=== PATIENT | male | born 1930 | race Caucasian/White ===

== ENCOUNTER 2016-03-23 12:02 | Inpatient (IN) | payer MEDICARE, OTHER ==
[~2016-03-23] VITALS: Ht 188 cm; Wt 81.6 kg
[2016-03-23 14:10] LABS: BASO % 0.3 % (0.0-1.0); EOS % 0.5 % (0.0-3.0); LARGE UNSTAINED CELL # 0.2 K/mm3 (0.0-0.4); LARGE UNSTAINED CELL % 3.7 % (0.0-4.0); LYMPH # 0.6 K/mm3 (1.5-4.5); LYMPH % 11.8 % (24.0-44.0); MEAN CORPUSCULAR HEMOGLOBIN 30.4 pg (27.0-33.0); MEAN CORPUSCULAR HGB CONC 32.1 g/dl (32.0-36.5); MEAN CORPUSCULAR VOLUME 94.5 fl (80.0-96.0); MONO # 0.3 K/mm3 (0.0-0.8); MONO % 6.4 % (0.0-5.0); NEUTROPHILS % 77.4 % (36.0-66.0); PLATELET COUNT, AUTOMATED 236 k/mm3 (150-450); RED CELL DISTRIBUTION WIDTH 14.2 % (11.5-14.5); WHITE BLOOD COUNT 5.1 K/mm3 (4.0-10.0)
[2016-03-23] MEDS ORDERED: IPRATROPIUM 0.5MG/ALBUTEROL 2.5MG INH SOL UD 3ML (DUONEB)(J7620) As Ordered ONE (14:58)
[2016-03-23 15:14] LABS: ANION GAP 9 MEQ/L (8-16); BLOOD UREA NITROGEN 23 MG/DL (7-18); CALCIUM LEVEL 8.4 MG/DL (8.8-10.2); CARBON DIOXIDE LEVEL 25 MEQ/L (21-32); CHLORIDE LEVEL 105 MEQ/L (98-107); CREATININE FOR GFR 1.04 MG/DL (0.70-1.30); GLOMERULAR FILTRATION RATE > 60.0 (>35); GLUCOSE, FASTING 91 MG/DL (83-110); POTASSIUM SERUM 3.4 MEQ/L (3.5-5.1); SODIUM LEVEL 139 MEQ/L (136-145)
--- NOTE | 2016-03-23 16:55 | REP ---
Portable chest x-ray: Single view. History: Cough. Comparison study: May 12, 2015. Findings: There are old granulomatous calcifications scattered bilaterally in the lung mchugh. Heart is at the upper range of normal in size and unchanged. There is a moderate dextroconvex thoracic rotoscoliotic curve. EKG electrodes are seen. There is no evidence of pneumothorax or infiltrate. Pulmonary vasculature is not increased. Impression: Old granulomatous changes. No acute disease. Signed by Juaquin Zazueta MD 03/23/2016 05:34 P
[2016-03-23] MEDS ORDERED: CARB25TA PO (17:39)
[2016-03-23] MEDS ORDERED: ZOCO40TA PO (17:39)
[2016-03-23] MEDS ORDERED: ZYLO300T4 PO (17:39)
[2016-03-23] MEDS ORDERED: OMEP40CA2 PO (17:39)
[2016-03-23] MEDS ORDERED: ACCU1TAB2 PO (17:39)
[2016-03-23] MEDS ORDERED: PRAD150C PO (17:39)
[2016-03-23] MEDS ORDERED: CART120C PO (17:39)
[2016-03-23] MEDS: NS 1,000 ML IV SCH (18:31)
[2016-03-23] MEDS ORDERED: ONDANSETRON 4 MG TAB (S0181) PO PRN (18:45)
[2016-03-23] MEDS ORDERED: IPRATROPIUM 0.5MG/ALBUTEROL 2.5MG INH SOL UD 3ML (DUONEB)(J7620) NEB PRN (18:45)
--- NOTE | 2016-03-23 19:20 | HPEPDOC ---
Medical History and Physical Date of Admission Mar 23, 2016 at 18:31 History and Physical HISTORY AND PHYSICAL Date of admission: 03/23/2016 PCP: Dr. Moran Chief complaint: Coughing, diarrhea, very weak HPI: 85-year-old male with Parkinson's, chronic A. fib, hypertension, prostate cancer, GERD, Shaw's esophagus, gout, hyperlipidemia, COPD who presented with cough and diarrhea, as well as weakness. He states that he has had cough and chills for approximately 2 weeks, and about 1 week ago, he started having diarrhea as well. He states that for the last week, he has only eaten crackers and soda water. He is unable to articulate exactly why this is, but when I asked him if he feels full after finishing them or if he feels nauseated and unable to eat anything else, he states that he feels better. In approximately the last 48 hours, he has hardly had any oral intake. He does report that the diarrhea has been slowing recently. Despite a 500 mL bolus, the patient was noted to be tachycardic, as well as have orthostatic hypotension, with standing. Given that he continues to have symptomatic dehydration and he lives alone, the ER requested overnight observation. Past medical history: Parkinson's, chronic A. fib, hypertension, prostate cancer , GERD, Shaw's esophagus, gout, hyperlipidemia, COPD Past surgical history: Bilateral knee replacement, cholecystectomy, TURP, appendectomy, bilateral eye surgery, bilateral varicose vein stripping, multiple hernia repairs Family history: Patient states that he is unsure of his family's medical history Social history: The patient currently lives alone. He states that he quit smoking approximately 40-50 years ago, but prior to that he smoked approximately half a pack a day. He reports having 2-3 drinks of alcohol weekly. Allergies: No known drug allergies Review of systems: General: Positive for weakness and chills. Negative for fevers. Eyes: Negative for vision changes and ocular discharge. ENT: Negative for sore throat and nose bleed. Cardiovascular: Negative for chest pain and palpitations. Respiratory: Positive for cough and shortness of breath. GI: Negative for nausea and vomiting. Positive for diarrhea. Musculoskeletal: Positive for neck pain. Skin: Negative for rash. Neuro: Positive for headache and dizziness. Negative for numbness and tingling. Psych: Negative for depression and suicidal ideation. Endocrine: Negative for polyuria : Negative for dysuria Heme: Negative for bruising and bleeding Home meds: See below Physical exam: Vital signs: Blood pressure 139/80, HR 100, temperature 98, O2 sat 97% on room air, RR 16 Gen.: awake, alert, no acute distress Eyes: Extraocular movements intact, normal sclera ENT: Dry mucous membranes Cardiovascular: irregularly irregular, no murmurs rubs or gallops Lungs: coarse, diffuse, expiratory rhonchi in all lung mchugh Abdomen: Soft, ND, normal BS, mild TTP in bilat lower quadrants Musculoskeletal: normal range of motion Extremities: No peripheral edema Neuro: alert and oriented 3, normal speech, no focal deficits Psych: Normal mood with congruent affect Labs and radiology: See below Potassium 3.4 BUN 23, creatinine 1.04 CK 344 Troponin negative Chest x-ray unremarkable Assessment and plan: 85-year-old male with Parkinson's, chronic A. fib, hypertension, prostate cancer , GERD, Shaw's esophagus, gout, hyperlipidemia, COPD who presented with cough and diarrhea, as well as weakness. He is admitted with dehydration. 1. Dehydration and Diarrhea: This is likely secondary to his poor by mouth intake and recent diarrhea. In the ED, he was orthostatic despite a small fluid bolus. We will start gentle IV fluid hydration, and continue to check orthostatic vital signs. He states that his diarrhea has been slowing down, but we will go ahead and order a GI panel. We will start him on a full liquid diet that can be advanced as tolerated. 2. Cough: I suspect that this is secondary to a viral illness. His chest x-ray is unremarkable and he is afebrile with a normal white count. He reports that he did receive the flu shot this year, but we will go ahead and check an influenza screen. Records from his PCP report a history of COPD, however, the patient is unaware of this diagnosis. His lungs are very rhonchorous on expiration, so we will start scheduled and as needed DuoNeb's. Given that he is afebrile with a normal white count and does not have any specific source of infection, I do not believe he needs antibiotics at this time. 3. Chronic A. fib: The patient's heart rate is hovering right around 100 at this time. We will monitor him on telemetry and continue his home diltiazem and as well as pradaxa. 4. Hypertension: Continue home FREDI inhibitor and diltiazem. 5. GERD and Shaw's esophagus: Continue home PPI. 6. Gout: Not active. Continue home allopurinol. 7. Hyperlipidemia: Continue home statin. 8. Parkinson's: Continue home Sinemet. 9. COPD: The patient is unaware of this diagnosis, but records from his PCP approximately one year ago make note of this. When asked if he uses any inhaler medications he states that he used to but his doctor stopped them. At this time , he does have a lot of diffuse rhonchi. We will start him on scheduled and as needed DuoNeb's. I do not believe at this time, that it's necessary to begin systemic steroids since he is not requiring any oxygen and is moving good air. We can reassess him in the morning, to determine if he is really having any COPD exacerbation that might require systemic steroids. DVT prophylaxis: Home Pradaxa Dispo: Place in observation status in the PCU for telemetry monitoring on the service of Dr. Mobley CODE STATUS: Full code Vital Signs see above Laboratory Data Labs 24H Laboratory Tests 2 03/23/16 12:35: Bedside Glucose (Misc Panel) 86 03/23/16 14:00: B-Type Natriuretic Peptide 70.8, White Blood Count 5.1, Red Blood Count 4.07L, Hemoglobin 12.4L, Hematocrit 38.5L, Mean Corpuscular Volume 94.5, Mean Corpuscular Hemoglobin 30.4, Mean Corpuscular Hemoglobin Concent 32.1, Red Cell Distribution Width 14.2, Platelet Count 236, Neutrophils (%) (Auto) 77.4H, Lymphocytes (%) (Auto) 11.8L, Monocytes (%) (Auto) 6.4H, Eosinophils (%) (Auto) 0.5, Basophils (%) (Auto) 0.3, Neutrophils # (Auto) 4.0, Lymphocytes # (Auto) 0.6L, Monocytes # (Auto) 0.3, Eosinophils # (Auto) 0.0, Basophils # (Auto) 0.0, Large Unclassified Cells # 0.2, Large Unclassified Cells % 3.7 03/23/16 14:34: Anion Gap 9, Blood Urea Nitrogen 23H, Creatinine 1.04, Sodium Level 139, Potassium Level 3.4L, Chloride Level 105, Carbon Dioxide Level 25, Calcium Level 8.4L, Total Creatine Kinase 344H, Creatine Kinase MB 2.7, Creatine Kinase MB Relative Index 0.78, Glomerular Filtration Rate > 60.0, Troponin I 0.02 CBC/BMP Laboratory Tests 03/23/16 14:00 Red Blood Count 4.07 L, Mean Corpuscular Volume 94.5, Mean Corpuscular Hemoglobin 30.4, Mean Corpuscular Hemoglobin Concent 32.1, Red Cell Distribution Width 14.2, Neutrophils (%) (Auto) 77.4 H, Lymphocytes (%) (Auto) 11.8 L, Monocytes (%) (Auto) 6.4 H, Eosinophils (%) (Auto) 0.5, Basophils (%) ( Auto) 0.3, Neutrophils # (Auto) 4.0, Lymphocytes # (Auto) 0.6 L, Monocytes # ( Auto) 0.3, Eosinophils # (Auto) 0.0, Basophils # (Auto) 0.0 03/23/16 14:34 Calcium Level 8.4 L, Total Creatine Kinase 344 H FSBS Laboratory Tests Test 03/23/16 12:35 Range/Units Bedside Glucose (Misc Panel) 86 83-110 MG/DL Microbiology Microbiology 03/23/16 Blood Culture, Received Pending 03/23/16 Blood Culture, Received Pending Home Medications Scheduled Allopurinol (Zyloprim) 300 Mg Tab 300 MG PO DAILY Carbidopa/Levodopa (Carbidopa/Levodopa 25-100 mg) 1 Tab Tab 1 TAB PO TID Dabigatran Etexilate (Pradaxa) 150 Mg Cap 150 MG PO BID PT STATES HE HAS NOT TAKEN IN ABOUT A WEEK Diltiazem HCl (Cartia Xt) 120 Mg Cap 120 MG PO DAILY Omeprazole (Omeprazole) 40 Mg Cap 40 MG PO DAILY Quinapril Hcl (Accupril) 20 Mg Tab 20 MG PO DAILY Simvastatin - High Dose (Zocor) 40 Mg Tab 40 MG PO DAILY Allergies Coded Allergies: No Known Allergies (Unverified , 01/27/14) FELICE FAN Mar 23, 2016 19:20
[2016-03-23 20:24] LABS: CALCIUM OXALATE CRYSTALS LARGE
--- NOTE | 2016-03-23 23:02 | ECGEPIP ---
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
[2016-03-23 23:20] VITALS: BP 131/63
--- NOTE | 2016-03-23 23:32 | EDDOCDS ---
Physician Documentation [facility] Name: Steven Holley Age: 85 yrs Sex: Male : 1930 Arrival Date: 03/23/2016 Time: 12:02 Bed I8 / 16 Private MD: Dean Disposition: 03/23 16:59 Critical Care: Critical care not applicable. pc Disposition: 03/23/16 17:00 Hospitalization ordered by Addie Downing for Inpatient Admission. Preliminary diagnosis are Dehydration, Other viral enteritis, Acute upper respiratory infection, unspecified - viral, Orthostatic hypotension. - Bed requested for PCU. - Status is Inpatient Admission. ld5 - Condition is Stable. - Problem is new. - Symptoms have improved. HPI: 13:32 This 85 yrs old Male presents to ER via Ambulance with complaints of Weakness.pc 13:32 The history is obtained from the patient. He developed a cough 2 weeks ago, pc occasionally productive of white sputum. He has had subjective fevers and has had chills. He developed nausea and watery diarrhea 1 week ago which has nearly resolved. He remains somewhat nauseated, has no appetite, and has had very little po intake in the past 6 days. He feels generally weak, and is unable to walk with his walker and states he doesn't think he can go home because he lives alone and has no help. The patient has not experienced similar symptoms in the past. The patient has not recently seen a physician. 13:32 At their worst, the symptoms were moderate. In the emergency department, the symptoms pc are mild. Historical: - Allergies: no known allergies; - Home Meds: 1. Accupril 40 mg Oral tab 1 tab once daily (Last dose: 03/23/2016) 2. allopurinol 300 mg Oral tab 1 tab once daily (Last dose: 03/23/2016) 3. carbidopa-levodopa 25-100 mg Oral tab 1 tab 3 times per day (Last dose: 03/23/2016) 4. Cartia XT 120 mg Oral cp24 1 cap once daily (Last dose: 03/23/2016) 5. omeprazole 20 mg Oral cpDR 2 caps once daily (Last dose: 03/23/2016) 6. Pradaxa 150 mg oral cap 1 cap 2 times per day (Last dose: Unknown) 7. simvastatin 40 mg Oral tab 1 tab once daily (Last dose: 03/23/2016) - PMHx: Cancer, Prostate; GERD; High Cholesterol; Hypertension; Parkinson's Disease; Diverticulosis; left inguinal hernia (fat-containing only); - PSHx: Hernia repair; Knee surgery; Appendectomy; Cholecystectomy; Varicose Vein Repair; - The history from nurses notes was reviewed: and elements of the historical information I have obtained differs from that reported to nursing. - Social history: Smoking status: Patient states former smoker of tobacco. No barriers to communication noted. - : The pt / caregiver states he / she is on anticoagulants: Pradaxa (Dabigatran) Home medication list is obtained from the facility MAR, Note pt unsure of medications. med list verified in medhost with pt to the best of pt's ability. unable to verify through pharmacy d/t pt using mail order for his prescriptions. . - Hospitalizations: : No recent hospitalization is reported. - Exposure Risk Screening:: None identified. - Immunization history:: All immunizations up-to-date. - Family history: Not pertinent. - Social history:: the patient is a former smoker, the patient does not drink alcohol. ROS: 13:32 All systems are negative except as listed. pc Exam: 13:32 General Appearance: alert, the patient is in mild distress. pc 13:32 EENT: normal eye inspection, ears, nose and throat normal, mucous membranes dry. 13:32 Neck: The exam reveals no acute abnormalities. ROM is normal and painless. No nuchal rigidity is noted.. 13:32 Respiratory: no respiratory distress, chest non-tender, Breath sounds: wheezing, in the left posterior lower lobe and right posterior lower lobe. 13:32 CVS: normal S1 and S2, no murmurs, strong peripheral pulses, normal capillary refill, the patient is tachycardic, at 118 bpm, irregularly irregular 13:32 Abdomen: soft, no organomegaly, normal bowel sounds, mild tenderness in the left lower quadrant, without rebound, voluntary guarding is not appreciated, involuntary guarding is elicited in the left lower quadrant, a hernia is noted in the left inguinal area, and is not incarcerated. 13:32 Back: normal inspection. 13:32 Skin: skin color is normal, warm, dry, the skin turgor is poor. 13:32 Extremities: are non-tender. 13:32 Neuro: oriented x 3, cranial nerves normal as tested, no motor deficits, no sensory deficits. 13:32 Psych: normal mood. Vital Signs: 12:19 BP 116 / 69; Pulse 114; Resp 26; Temp 98(TE); Pulse Ox 96% on R/A; Weight 81.65 kg / mb9 180.01 lbs; Height 6 ft. 2 in. (187.96 cm); Pain 5/10; 13:19 BP 123 / 70 (auto/); ld5 13:19 Pulse 92 MON; Pulse Ox 96% ; ld5 13:49 BP 128 / 66 (auto/); ld5 13:49 Pulse 88 MON; Resp 20; ld5 14:19 BP 135 / 71 (auto/); ld5 14:19 Pulse 88 MON; ld5 14:49 BP 139 / 79 (auto/); ld5 14:57 Pulse 98 MON; Resp 20; Pulse Ox 96% ; ld5 15:19 BP 146 / 73 (auto/); ld5 15:19 Pulse 98 MON; Pulse Ox 96% ; ld5 15:49 BP 134 / 80 (auto/); ld5 15:49 Pulse 100 MON; Resp 18; Temp 98.1(O); Pulse Ox 97% on R/A; ld5 16:38 BP 117 / 64 Supine; Pulse 91; ld5 16:38 BP 99 / 54 Sitting; Pulse 121; ld5 16:38 Pulse 139; ld5 16:38 BP 191 / 92; ld5 17:07 BP 121 / 74 (auto/); ld5 17:07 Pulse 98 MON; Pulse Ox 97% ; ld5 17:19 BP 139 / 80 (auto/); ld5 17:19 Pulse 98 MON; Pulse Ox 98% ; ld5 17:49 BP 133 / 68 (auto/); ld5 17:49 Pulse 98 MON; Pulse Ox 95% ; ld5 18:19 BP 147 / 80 (auto/); ld5 18:19 Pulse 106 MON; Pulse Ox 95% ; ld5 18:49 BP 147 / 80 (auto/); ld5 18:49 Pulse 102 MON; ld5 19:19 BP 144 / 96 (auto/); ld5 19:24 Pulse 116 MON; Resp 18; Temp 98.2; ld5 19:48 Pulse 116 MON; ld5 19:49 BP 137 / 74 (auto/); ld5 20:19 BP 126 / 69 (auto/); ld5 20:20 Pulse 110 MON; Pulse Ox 95% ; ld5 20:49 BP 115 / 70 (auto/); Pulse 112; Resp 18; Temp 98.1; Pulse Ox 95% on R/A; Pain 0/10; ld5 21:19 Pulse 110 MON; Pulse Ox 93% ; ld5 21:19 BP 123 / 74 (auto/); ld5 21:49 Pulse 108 MON; Pulse Ox 95% ; ld5 21:49 BP 109 / 68 (auto/); ld5 22:19 BP 124 / 84 (auto/); ld5 22:19 Pulse 114 MON; Pulse Ox 97% ; ld5 22:49 BP 123 / 67 (auto/); ld5 22:49 Pulse 96 MON; Resp 18; Temp 98.2; Pulse Ox 95% on R/A; ld5 12:19 Body Mass Index 23.11 (81.65 kg, 187.96 cm) mb9 16:38 Pt unable to stand long enough to allow BP to complete. Upon sitting back into bed, BP ld5 completed at read at 191/92 MDM: 12:49 Fingerstick Blood Sugar Ordered. EDMS 12:57 [facility] Payment Agreement was scanned into [employer] and attached to record. lg 13:28 IV Saline Lock ordered. pc 13:28 Fund Director/Pulse Ox/q 30 min VS ordered. pc 13:28 -Blood Culture (Adults Only), peripheral from different site, or from device/port/PICC pc etc. if present ordered. 13:28 NS 0.9% 500 ml IV at bolus once ordered. pc 13:29 Stool samples ordered. pc 13:29 CBC with Diff Ordered. EDMS 13:29 MED Profile Ordered. EDMS 13:29 -Blood Culture Ordered. EDMS 13:29 CIP Ordered. EDMS 13:29 Troponin Ordered. EDMS 13:29 BNP Ordered. EDMS 13:29 Financial registration complete. lg 13:29 -Blood Culture (Adults Only), peripheral from different site, or from device/port/PICC ar3 etc. if present complete. 13:30 ECG WITH READING ER PHYS+CARDIAG ordered. EDMS 13:31 BLOOD CULTURES Ordered. EDMS 13:31 Chest, 1 View Ordered. EDMS 13:32 Differential Diagnosis: cough, diarrhea, dehydration, AFib with RVR. Plan: labs, meds, pc imaging, EKG. 13:42 Test interpretation: EKG. pc 14:09 Albuterol-Ipratropium 3 ml Inhalation once ordered. pc 14:09 Call Respiratory ordered. pc 14:13 Call Respiratory complete. ar3 14:28 CBC with Diff Reviewed. pc 14:28 Fingerstick Blood Sugar Reviewed. pc 14:36 BNP Reviewed. pc 16:08 MED Profile Reviewed. pc 16:08 CIP Reviewed. pc 16:08 Troponin Reviewed. pc 16:11 Orthostatic VS ordered. pc 16:45 BED REQUEST+ADM ordered. EDMS 16:59 Data reviewed: old medical records, vital signs, nurses notes, EKG(s), lab test pc results, all radiology studies and available results. Test interpretation: LAB - all labs as ordered have been reviewed, interpreted and considered in the overall management of the clinical presentation; X-RAY - interpreted by Radiologist and personally reviewed, 1 view chest no acute disease. The patient has been re-examined and re-evaluated. The patient's symptoms have mildly improved after treatment, but he remains orthostatic and too weak to stand on his own, even with his walker. Physician consultation: Dr. Addie Downing was contacted at 16:59, regarding admission. Disposition: The historical points, examination findings, and any diagnostic results supporting the provided diagnosis, were discussed with the patient or legal guardian. The need for further work-up and/or treatment in the hospital was explained. 18:40 PHYSICAL THERAPY EVAL & TREAT ordered. EDMS 18:41 Admission / Observation Status ordered. EDMS 18:41 FULL LIQUIDS DIET ordered. EDMS 18:42 URINALYSIS Ordered. EDMS 18:42 INFLUENZA A&B RAPID ANTIGEN Ordered. EDMS 18:42 GASTROINTESTINAL (GI) PANEL Ordered. EDMS 19:32 CBC WITH DIFFERENTIAL Ordered. EDMS 19:32 BASIC METABOLIC PROFILE Ordered. EDMS 19:32 MAGNESIUM LEVEL Ordered. EDMS 23:31 NS 0.9% 1000 ml IV at 75 mL/hr continuous ordered. ld5 EC:42 Rate is 90 beats/min. Rhythm is irregularly irregular, A fib. QRS [place] is Normal. MS pc interval is normal. QRS interval is normal. QT interval is normal. No Q waves. T waves are Normal. No ST changes noted. Clinical impression: Atrial Fibrillation w/o RVR. Administered Medications: 14:05 Drug: NS 0.9% 500 ml [sodium chloride 0.9 % intravenous solution] Route: IV; Rate: ld5 bolus; Site: left forearm; 15:10 Follow up: IV Status: Completed infusion; IV Intake: 500ml ld5 15:00 Drug: Albuterol-Ipratropium 3 ml [ipratropium-albuterol 0.5 mg-3 mg(2.5 mg base)/3 mL jc3 nebulization soln (3 mL)] Route: Inhalation; 22:00 Drug: NS 0.9% 1000 ml [sodium chloride 0.9 % intravenous solution] Route: IV; Rate: 75 ld5 mL/hr; Site: left forearm; 23:31 Follow up: IV Status: Infusion continued upon admit ld5 Signatures: Dispatcher [employer] EDIssa Reddy MD MD pc Newman, Jill New RN Stuart Escobar, Reg Reg lg Anna Garcia, VICKIE VOTING MACHINE REPAIRER ar3 Narda Bailon RN RN ld5 Balaji Monte RN RN mb9 Foreign Delatorre jc3 The chart was reviewed and I authenticate all verbal orders and agree with the evaluation and treatment provided.Corrections: (The following items were deleted from the chart) 13:39 13:32 The history from nurses notes was reviewed and I agree with what is documented. pcpc 18:42 18:42 GASTROINTESTINAL (GI) PANEL ordered. EDMS EDMS 18:42 18:42 GASTROINTESTINAL (GI) PANEL ordered. EDMS EDMS Attachments: 12:57 [facility] Payment Agreement lg [id number]
--- NOTE | 2016-03-23 23:32 | EDDOCDS ---
Nurse's Notes [facility] Name: Steven Holley Age: 85 yrs Sex: Male : 1930 Arrival Date: 03/23/2016 Time: 12:02 Bed I8 / 16 Private MD: Dean Diagnosis: Dehydration;Other viral enteritis;Acute upper respiratory infection, unspecified-viral;Orthostatic hypotension Presentation: 03/23 12:14 Presenting complaint: Patient states: "I've been coughing for a while and the only mb9 thing I've had to eat is crackers and soda water". pt reports diarrhea. pt reports he was to see his phcp on Friday but felt he needed to be seen now for the symptoms. EMS reports initial blood pressure of 88/64, ems started NS at bolus. EMS reports most recent bp in route of 114/77. 12:14 Acuity: HEBER Level 3 mb9 12:20 The last date and time the patient was known to be well was was at an unknown time on mb9 an unknown date. No acute neurological deficit is noted. Suicide/Homicide risk assessment- the patient denies having any suicidal and/or homicidal ideations and does not present with any other emotional, behavioral or mental health complaints. Status: Patient is not a resident services manager or dependent. Transition of care: patient was not received from another setting of care. 12:20 Method Of Arrival: Ambulance mb9 12:30 Adult Sepsis Screening: The patient does not have new or worsening altered mentation. mb9 Patient has a respiratory rate of greater than or equal to 22 (1 point). Systolic blood pressure is greater than 100. Patient has a qSOFA score of 1- Negative Sepsis Screen. 12:31 Care prior to arrival: See EMS report. mb9 12:37 Pre-hospital glucose is not applicable to this patient. mb9 Triage Assessment: 12:31 The onset of the patients symptoms was more than three hours ago. General: Appears mb9 unkempt, Behavior is appropriate for age, cooperative. Pain: Location: abdomen Pain currently is 5 out of 10 on a pain scale. Neurological: Level of Consciousness is awake, alert, Oriented to person, place, time, Service Loss Control Consultant are equal bilaterally Moves all extremities. Speech is normal, Facial symmetry appears normal, Pupils are PERRLA, Reports weakness. Cardiovascular: Heart tones S1 S2 present Rhythm is sinus tachycardia with PACs. Respiratory: Airway is patent Respiratory effort is even, labored, Breath sounds are coarse bilaterally. Reports cough that is non-productive. GI: Abdomen is flat, non- distended Bowel sounds present X 4 quads. Abd is soft X 4 quads Abd is tender to palpation in left lower quadrant Reports diarrhea. Historical: - Allergies: no known allergies; - Home Meds: 1. Accupril 40 mg Oral tab 1 tab once daily (Last dose: 03/23/2016) 2. allopurinol 300 mg Oral tab 1 tab once daily (Last dose: 03/23/2016) 3. carbidopa-levodopa 25-100 mg Oral tab 1 tab 3 times per day (Last dose: 03/23/2016) 4. Cartia XT 120 mg Oral cp24 1 cap once daily (Last dose: 03/23/2016) 5. omeprazole 20 mg Oral cpDR 2 caps once daily (Last dose: 03/23/2016) 6. Pradaxa 150 mg oral cap 1 cap 2 times per day (Last dose: Unknown) 7. simvastatin 40 mg Oral tab 1 tab once daily (Last dose: 03/23/2016) - PMHx: Cancer, Prostate; GERD; High Cholesterol; Hypertension; Parkinson's Disease; Diverticulosis; left inguinal hernia (fat-containing only); - PSHx: Hernia repair; Knee surgery; Appendectomy; Cholecystectomy; Varicose Vein Repair; - The history from nurses notes was reviewed: and elements of the historical information I have obtained differs from that reported to nursing. - Social history: Smoking status: Patient states former smoker of tobacco. No barriers to communication noted. - : The pt / caregiver states he / she is on anticoagulants: Pradaxa (Dabigatran) Home medication list is obtained from the facility MAR, Note pt unsure of medications. med list verified in medhost with pt to the best of pt's ability. unable to verify through pharmacy d/t pt using mail order for his prescriptions. . - Hospitalizations: : No recent hospitalization is reported. - Exposure Risk Screening:: None identified. - Immunization history:: All immunizations up-to-date. - Family history: Not pertinent. - Social history:: the patient is a former smoker, the patient does not drink alcohol. Screenin:13 Screening information is obtained from the patient. Fall risk: At risk due to gait ld5 disturbance. Assistance ADL's: requires no assistance with activities of daily living. Abuse/DV Screen: The patient / caregiver reports he/she is: not in a situation that causes fear, pain or injury. Nutritional screening: decreased appetite, minimal intake for a week. Advance Directives: Currently, there is no health care proxy. Assessment: 14:06 General: Appears in no apparent distress, ill, Behavior is cooperative. Pain: Location: ld5 abdomen Pain currently is 3 out of 10 on a pain scale. Quality of pain is described as aching. Neurological: Level of Consciousness is awake, alert. Cardiovascular: Heart tones S1 S2 present. Respiratory: Airway is patent Respiratory effort is even, unlabored, Breath sounds are coarse in left posterior lower lobe and right posterior lower lobe Reports cough that is productive. GI: Abdomen is non- distended Bowel sounds present X 4 quads. Abd is soft and non tender X 4 quads. Reports diarrhea, decreased appetite. Pt reports eating only crackers and soda water for past week. : Denies burning with urination, pain with urination. Derm: Skin is intact, is fragile, Skin is dry. 14:06 Musculoskeletal: Swelling present in right knee Reports weakness in right leg and left ld5 leg. 14:35 General: Pt laying in bed with eyes closed. Respirations easy and unlabored. Will ld5 continue to monitor. 14:59 General: Pt receiving respiratory treatment. Will continue to monitor. ld5 15:20 General: Pt reports still felling "no so good" after bolus of NS and respiratory ld5 treatment. Will continue to monitor. 16:10 General: Appears in no apparent distress. General: Pt sleeping. Will monitor. ld5 Respiratory: Airway is patent Respiratory effort is even, unlabored. 16:43 General: Orthostatics attempted with pt. Pt unable to stand long enough for BP to ld5 complete and had to sit back upon bed. Pt reported right leg and LLQ pain. Pt states he broke his leg a year ago but did not know about it until a few months ago. Breathing became labored and pt tachycardic. Provider made aware of pt's results. Will continue to monitor. 17:12 General: Pt made aware of plan for admission. Lights dimmed for comfort. Will continue ld5 to monitor. 18:15 General: Appears in no apparent distress. Respiratory: Airway is patent Respiratory ld5 effort is even, unlabored. 19:19 General: Pt repositioned in bed and dinner tray provided. Awaiting bed assignment. Will ld5 continue to monitor. 20:16 General: Pt some 1/4 of dinner tray. Tolerated well but reported some mild pain to LLQ. ld5 Pt given urinal. Specimen sent to lab. Pt repositioned. Awaiting bed assignment. Will continue to monitor. 20:55 General: Pt sleeping. No apparent distress. Will continue to monitor. ld5 21:37 General: Spoke with Danielle on PCU. Confirmed receipt of SBAR but reports room is not ld5 clean. Will try back. 21:51 General: Pt resting comfortably in bed. Pt updated on room situation. Denies any needs. ld5 Call shafer within reach. Will continue to monitor. 22:50 General: Spoke with Danielle again on PCU. Danielle reports room is currently being cleaned ld5 and Keaton will call once pt can come up. 22:51 General: Appears in no apparent distress. Pain: Pain currently is 2 out of 10 on a pain ld5 scale. Neurological: Level of Consciousness is awake, alert. Respiratory: Airway is patent Respiratory effort is even, unlabored. GI: Denies nausea. Vital Signs: 12:19 BP 116 / 69; Pulse 114; Resp 26; Temp 98(TE); Pulse Ox 96% on R/A; Weight 81.65 kg; mb9 Height 6 ft. 2 in. (187.96 cm); Pain 5/10; 13:19 BP 123 / 70 (auto/); ld5 13:19 Pulse 92 MON; Pulse Ox 96% ; ld5 13:49 BP 128 / 66 (auto/); ld5 13:49 Pulse 88 MON; Resp 20; ld5 14:19 BP 135 / 71 (auto/); ld5 14:19 Pulse 88 MON; ld5 14:49 BP 139 / 79 (auto/); ld5 14:57 Pulse 98 MON; Resp 20; Pulse Ox 96% ; ld5 15:19 BP 146 / 73 (auto/); ld5 15:19 Pulse 98 MON; Pulse Ox 96% ; ld5 15:49 BP 134 / 80 (auto/); ld5 15:49 Pulse 100 MON; Resp 18; Temp 98.1(O); Pulse Ox 97% on R/A; ld5 16:38 BP 117 / 64 Supine; Pulse 91; ld5 16:38 BP 99 / 54 Sitting; Pulse 121; ld5 16:38 Pulse 139; ld5 16:38 BP 191 / 92; ld5 17:07 BP 121 / 74 (auto/); ld5 17:07 Pulse 98 MON; Pulse Ox 97% ; ld5 17:19 BP 139 / 80 (auto/); ld5 17:19 Pulse 98 MON; Pulse Ox 98% ; ld5 17:49 BP 133 / 68 (auto/); ld5 17:49 Pulse 98 MON; Pulse Ox 95% ; ld5 18:19 BP 147 / 80 (auto/); ld5 18:19 Pulse 106 MON; Pulse Ox 95% ; ld5 18:49 BP 147 / 80 (auto/); ld5 18:49 Pulse 102 MON; ld5 19:19 BP 144 / 96 (auto/); ld5 19:24 Pulse 116 MON; Resp 18; Temp 98.2; ld5 19:48 Pulse 116 MON; ld5 19:49 BP 137 / 74 (auto/); ld5 20:19 BP 126 / 69 (auto/); ld5 20:20 Pulse 110 MON; Pulse Ox 95% ; ld5 20:49 BP 115 / 70 (auto/); Pulse 112; Resp 18; Temp 98.1; Pulse Ox 95% on R/A; Pain 0/10; ld5 21:19 Pulse 110 MON; Pulse Ox 93% ; ld5 21:19 BP 123 / 74 (auto/); ld5 21:49 Pulse 108 MON; Pulse Ox 95% ; ld5 21:49 BP 109 / 68 (auto/); ld5 22:19 BP 124 / 84 (auto/); ld5 22:19 Pulse 114 MON; Pulse Ox 97% ; ld5 22:49 BP 123 / 67 (auto/); ld5 22:49 Pulse 96 MON; Resp 18; Temp 98.2; Pulse Ox 95% on R/A; ld5 12:19 Body Mass Index 23.11 (81.65 kg, 187.96 cm) mb9 16:38 Pt unable to stand long enough to allow BP to complete. Upon sitting back into bed, BP ld5 completed at read at 191/92 Vitals: 12:19 Log In Time N/A - ambulance arrival. mb9 12:31 Glucose Measurement fsbs 86. mb9 ED Course: 12:03 Patient visited by Anna Garcia PCA. ar3 12:03 Patient moved to Waiting ar3 12:04 Dean is Private Physician. ar3 12:04 Hui Holley,RN is Primary Nurse. ar3 12:04 Patient moved to 13 ar3 12:05 Patient moved to I8 / 16 [facility] 12:15 Triage Initiated mb9 12:20 Patient has correct armband on for positive identification. Placed in gown. Bed in low ct3 position. Call light in reach. Side rails up X2. 12:25 Patient visited by Yuliana Bangura PCA. ct3 12:25 radiation monitor on. Pulse ox on. NIBP on. ct3 12:38 Maintain field IV. Dressing intact. Good blood return noted. Site clean & dry. Gauge & mb9 site: 18g left hand. 12:57 [facility] Payment Agreement was scanned into [employer] and attached to record. lg 12:59 Issa Aguilar MD is Attending Physician. pc 13:25 Patient visited by Issa Aguilar MD. pc 13:38 EKG done. (by ED staff). Reviewed by Issa Aguilar MD. ct3 13:40 Patient visited by Yuliana Bangura PCA. ct3 14:05 BLOOD CULTURES Sent. ld5 14:05 BNP Sent. ld5 14:05 Troponin Sent. ld5 14:05 CIP Sent. ld5 14:05 -Blood Culture Sent. ld5 14:05 MED Profile Sent. ld5 14:05 CBC with Diff Sent. ld5 14:06 Inserted saline lock: 20 gauge in left forearm and blood collected. The patient ld5 tolerated the procedure well. Labs/Blood culture drawn. 14:08 Patient visited by Narda Bailon,CHITO. ld5 14:56 Patient visited by Narda Bailon,RN. ld5 15:01 Patient visited by Narda Bailon,RN. ld5 15:38 Patient visited by Narda Bailon,RN. ld5 15:47 Patient visited by Narda Bailon,RN. ld5 16:20 Patient visited by Narda Bailon,RN. ld5 16:47 Patient visited by Narda Bailon RN. ld5 17:00 Addie Downing is Hospitalizing Provider. pc 17:10 Chest, 1 View Returned. EDMS 17:13 The patient / caregiver is instructed regarding the plan of care and ED course. ld5 17:14 Patient visited by Narda Bailon RN. ld5 19:06 Patient visited by Vance Winter PCA. kb5 19:21 Patient visited by Narda Bailon RN. ld5 20:15 INFLUENZA A&B RAPID ANTIGEN Sent. ld5 20:18 Patient visited by Narda Bailon RN. ld5 20:38 Patient moved to Admit Hold ml3 20:55 Patient visited by Narda Bailon RN. ld5 21:38 Patient visited by Narda Bailon RN. ld5 21:52 Patient visited by Narda Bailon RN. ld5 21:52 No procedures done that require assistance. ld5 21:54 Patient moved to I8 / 16 ml3 22:03 Patient visited by Vance Winter PCA. kb5 22:51 Patient visited by Narda Bailon RN. ld5 23:07 Patient visited by Narda Bailon RN. ld5 23:12 Patient visited by Narda Bailon RN. ld5 23:31 Patient visited by Narda Bailon RN. ld5 Administered Medications: 14:05 Drug: NS 0.9% 500 ml [sodium chloride 0.9 % intravenous solution] Route: IV; Rate: ld5 bolus; Site: left forearm; 15:10 Follow up: IV Status: Completed infusion; IV Intake: 500ml ld5 15:00 Drug: Albuterol-Ipratropium 3 ml [ipratropium-albuterol 0.5 mg-3 mg(2.5 mg base)/3 mL jc3 nebulization soln (3 mL)] Route: Inhalation; 22:00 Drug: NS 0.9% 1000 ml [sodium chloride 0.9 % intravenous solution] Route: IV; Rate: 75 ld5 mL/hr; Site: left forearm; 23:31 Follow up: IV Status: Infusion continued upon admit ld5 Intake: 15:10 IV: 500.00ml; Total: 500.00ml. ld5 RT: 15:00 Initial Med Neb Given as ordered. Respiratory: Breath sounds are coarse bilaterally. jc3 Breath sounds with crackles. Order Results: Lab Order: Fingerstick Blood Sugar; SPEC'M 03/23/16 12:35 Test: BEDSIDE GLUCOSE; Value: 86; Range: 83-110; Units: MG/DL; Status: F Lab Order: CBC with Diff; SPEC'M 03/23/16 14:00 Test: WHITE BLOOD COUNT; Value: 5.1; Range: 4.0-10.0; Units: K/mm3; Status: F Test: RED BLOOD COUNT; Value: 4.07; Range: 4.30-6.10; Abnormal: Below low normal; Units: M/mm3; Status: F Test: HEMOGLOBIN; Value: 12.4; Range: 14.0-18.0; Abnormal: Below low normal; Units: g/dl; Status: F Test: HEMATOCRIT; Value: 38.5; Range: 42.0-52.0; Abnormal: Below low normal; Units: %; Status: F Test: MEAN CORPUSCULAR VOLUME; Value: 94.5; Range: 80.0-96.0; Units: fl; Status: F Test: MEAN CORPUSCULAR HEMOGLOBIN; Value: 30.4; Range: 27.0-33.0; Units: pg; Status: F Test: MEAN CORPUSCULAR HGB CONC; Value: 32.1; Range: 32.0-36.5; Units: g/dl; Status: F Test: RED CELL DISTRIBUTION WIDTH; Value: 14.2; Range: 11.5-14.5; Units: %; Status: F Test: PLATELET COUNT, AUTOMATED; Value: 236; Range: 150-450; Units: k/mm3; Status: F Test: NEUTROPHILS %; Value: 77.4; Range: 36.0-66.0; Abnormal: Above high normal; Units: %; Status: F Test: LYMPH %; Value: 11.8; Range: 24.0-44.0; Abnormal: Below low normal; Units: %; Status: F Test: MONO %; Value: 6.4; Range: 0.0-5.0; Abnormal: Above high normal; Units: %; Status: F Test: EOS %; Value: 0.5; Range: 0.0-3.0; Units: %; Status: F Test: BASO %; Value: 0.3; Range: 0.0-1.0; Units: %; Status: F Test: LARGE UNSTAINED CELL %; Value: 3.7; Range: 0.0-4.0; Units: %; Status: F Test: NEUTROPHILS #; Value: 4.0; Range: 1.8-7.7; Units: K/mm3; Status: F Test: LYMPH #; Value: 0.6; Range: 1.5-4.5; Abnormal: Below low normal; Units: K/mm3; Status: F Test: MONO #; Value: 0.3; Range: 0.0-0.8; Units: K/mm3; Status: F Test: EOS #; Value: 0.0; Range: 0.0-0.50; Units: K/mm3; Status: F Test: BASO #; Value: 0.0; Range: 0.0-0.2; Units: K/mm3; Status: F Test: LARGE UNSTAINED CELL #; Value: 0.2; Range: 0.0-0.4; Units: K/mm3; Status: F Lab Order: MED Profile; SPEC'M 03/23/16 14:34 Test: GLUCOSE, FASTING; Value: 91; Range: 83-110; Units: MG/DL; Status: F Test: BLOOD UREA NITROGEN; Value: 23; Range: 7-18; Abnormal: Above high normal; Units: MG/DL; Status: F Test: CREATININE FOR GFR; Value: 1.04; Range: 0.70-1.30; Units: MG/DL; Status: F Test: GLOMERULAR FILTRATION RATE; Value: > 60.0; Range: >35; Status: F Test: SODIUM LEVEL; Value: 139; Range: 136-145; Units: MEQ/L; Status: F Test: POTASSIUM SERUM; Value: 3.4; Range: 3.5-5.1; Abnormal: Below low normal; Units: MEQ/L; Status: F Test: CHLORIDE LEVEL; Value: 105; Range: 98-107; Units: MEQ/L; Status: F Test: CARBON DIOXIDE LEVEL; Value: 25; Range: 21-32; Units: MEQ/L; Status: F Test: ANION GAP; Value: 9; Range: 8-16; Units: MEQ/L; Status: F Test: CALCIUM LEVEL; Value: 8.4; Range: 8.8-10.2; Abnormal: Below low normal; Units: MG/DL; Status: F Test Note: ; Units are mL/min/1.73 m2 Chronic Kidney Disease Staging per NKF: Stage I & II GFR >=60 Normal to Mildly Decreased Stage III GFR 30-59 Moderately Decreased Stage IV GFR 15-29 Severely Decreased Stage V GFR <15 Very Little GFR Left ESRD GFR <15 on PLASTIC TECHNICIAN Lab Order: CIP; 03/23/16 14:34 Test: CPK CREATINE PHOSPHOKINASE; Value: 344; Range: 39-308; Abnormal: Above high normal; Units: U/L; Status: F Test: CK-MB VALUE MASS; Value: 2.7; Range: 0.0-3.6; Units: NG/ML; Status: F Test: MB/CK RELATIVE INDEX; Value: 0.78; Range: < OR =4; Status: F Test Note: ; DIAGNOSIS CRITERIA MMB ng/ml Relative Index (RI) NON-AMI < or = 5 N/A ARANGO [place]ONE > 5 < or = 4 AMI > 5 > 4 Lab Order: Troponin; 03/23/16 14:34 Test: TROPONIN I; Value: 0.02; Range: < 0.10; Units: NG/ML; Status: F Test Note: ; Troponin I Reference Interval for [employer] LOCI: 99th Percentile= 0.00-0.045 ng/ml Risk Stratification: <= 0.10 ng/ml Decreased Risk for Adverse Clinical Events. 0.10-1.50 ng/ml Increased Risk for Adverse Clinical Events. Evaluation of additional criterion and/or repeat testing in 2-6 hours is suggested to rule out myocardial damage. >= 1.50 ng/ml Indicative of Myocardial Injury. Lab Order: BNP; 03/23/16 14:00 Test: BRAIN NATRIURETIC PEPTIDE; Value: 70.8; Range: <100; Units: PG/ML; Status: F Lab Order: URINALYSIS; 03/23/16 20:09 Test: APPEARANCE, URINE; Value: TURBID; Range: CLEAR; Abnormal: Above high normal; Status: F Test: COLOR, URINE; Value: NINO; Range: YELLOW; Status: F Test: PH,URINE; Value: 7.0; Range: 5.0-9.0; Units: UNITS; Status: F Test: SPECIFIC GRAVITY URINE AUTO; Value: 1.019; Range: 1.002-1.035; Status: F Test: PROTEIN, URINE AUTO; Value: 2+; Range: NEGATIVE; Abnormal: Above high normal; Units: mg/dL; Status: F Test: GLUCOSE, URINE (UA) AUTO; Value: NEGATIVE; Range: NEGATIVE; Units: mg/dL; Status: F Test: KETONE, URINE AUTO; Value: TRACE; Range: NEGATIVE; Abnormal: Above high normal; Units: mg/dL; Status: F Test: UROBILINOGEN, URINE AUTO; Value: 0.2; Range: 0.0-2.0; Units: mg/dL; Status: F Test: BILIRUBIN, URINE AUTO; Value: NEGATIVE; Range: NEGATIVE; Status: F Test: NITRITE, URINE AUTO; Value: NEGATIVE; Range: NEGATIVE; Status: F Test: LEUKOCYTE ESTERASE, URINE AUTO; Value: 3+; Range: NEGATIVE; Abnormal: Above high normal; Status: F Test: BLOOD, URINE BLOOD; Value: 1+; Range: NEGATIVE; Abnormal: Above high normal; Status: F Test: WBC, URINE AUTO; Value: TNTC; Range: 0-3; Abnormal: Above high normal; Units: /HPF; Status: F Test: RBC, URINE AUTO; Value: 38; Range: 0-3; Abnormal: Above high normal; Units: /HPF; Status: F Test: BACTERIA, URINE AUTO; Value: 1+; Range: NEGATIVE; Abnormal: Above high normal; Status: F Test: SQUAMOUS EPITHELIAL CELL UR AU; Value: 6; Range: 0-6; Units: /HPF; Status: F Test: MUCUS, URINE; Value: SMALL; Range: NEGATIVE; Status: F Test: HYALINE CAST, URINE AUTO; Value: 0; Range: 0-1; Units: /LPF; Status: F Test: CALCIUM OXALATE CRYSTALS; Value: LARGE; Range: NONE; Status: F Lab Order: INFLUENZA A&B RAPID ANTIGEN; SPEC'M 03/23/16 20:10 Test: INFLUENZA A RAPID SCR by ICA; Value: INFLUENZA A RESULTS NEGATIVE; Status: F Test: INFLUENZA A RAPID SCR by ICA; Value: Comments:; Status: F Test: INFLUENZA B RAPID SCR by ICA; Value: INFLUENZA B RESULTS NEGATIVE; Status: F Test Note: ; The Influenza test is a direct rapid immunoassay for the qualitative detection of Influenza viral antigen. Cell culture (Viral Culture) testing should be considered to confirm NEGATIVE results and to assist in detecting other viruses that can provide similar clinical symptoms. Please contact the lab within 24 hours ([phone]) if confirmatory testing is desired. Radiology Order: Chest, 1 View Test: Chest, 1 View REASON FOR EXAMINATION: Cough; Portable chest x-ray: Single view.; ; History: Cough.; ; Comparison study: May 12, 2015.; ; Findings: There are old granulomatous calcifications scattered bilaterally in; the lung mchugh. 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 EKG electrodes; are seen. There is no evidence of pneumothorax or infiltrate. Pulmonary; vasculature is not increased.; ; Impression:; ; Old granulomatous changes. No acute disease.; ; ; Signed by; Juaquin Zazueta MD 03/23/2016 05:34 P; Outcome: 17:00 Decision to Hospitalize by Provider. pc 21:52 No special radiology studies were completed. ld5 23:12 Discharge Assessment: Patient awake, alert and oriented x 3. No cognitive and/or ld5 functional deficits noted. Patient verbalized understanding of disposition instructions. patient administered narcotics - no. The following High Risk Discharge criteria are identified: None. Admitted to PCU accompanied by nurse, accompanied by tech, via stretcher, on monitor, with chart. Condition: stable. Property :Personal belongings accompany Pt. 23:31 Patient left the ED. ld5 Signatures: Dispatcher [employer] EDMS Issa Aguilar MD MD pc Jobson, Karen, RN RN kpj Ganter, LoriLee, Caesar Reg Chip Saez, Waiver Analyst Unit ml3 Vance Winter, PEAR PICKER PEAR PICKER kb5 Foreign Delatorre jc3 Anna Garcia, PEAR PICKER PEAR PICKER ar3 Narda Bailon RN RN ld5 Yuliana Bangura, PEAR PICKER PEAR PICKER ct3 Belles,Balaji,RN RN mb9 Corrections: (The following items were deleted from the chart) 12:28 12:19 Pulse 114bpm; Resp 26bpm; Pulse Ox 96% RA; Temp 98F Temporal; 81.65 kg; Height 6 mb9 ft. 2 in.; BMI: 23.1; Pain 5/10; mb9 12:31 12:14 Presenting complaint: Patient states: "I've been coughing for a while and the mb9 only thing I've had to eat is crackers and soda water". pt reports diarrhea. pt reports he was to see his phcp on Friday but felt he needed to be seen now for the symptoms. mb9 13:39 13:32 The history from nurses notes was reviewed and I agree with what is documented. pcpc MTDD
[2016-03-23] MEDS ORDERED: POTASSIUM CHLORIDE 10 MEQ SR TABLET PO ONE (23:50)
[2016-03-24] VITALS (7 sets, daily range): BP systolic 94–158; BP diastolic 55–84
[2016-03-24] MEDS: IPRATROPIUM 0.5MG/ALBUTEROL 2.5MG INH SOL UD 3ML (DUONEB)(J7620) NEB SCH ×4 (00:14→19:37)
[2016-03-24] MEDS: DABIGATRAN ETEXILATE 75 MG CAP (PRADAXA) PO SCH ×3 (00:27→21:00)
[2016-03-24] MEDS: SINEMET 25-100 MG TAB PO SCH ×4 (00:28→21:00)
[2016-03-24 05:32] LABS: BASO % 0.7 % (0.0-1.0); EOS % 0.2 % (0.0-3.0); LARGE UNSTAINED CELL # 0.2 K/mm3 (0.0-0.4); LYMPH % 14.2 % (24.0-44.0); MEAN CORPUSCULAR HGB CONC 32.4 g/dl (32.0-36.5); MEAN CORPUSCULAR VOLUME 95.6 fl (80.0-96.0); MONO # 0.4 K/mm3 (0.0-0.8); MONO % 6.6 % (0.0-5.0); NEUTROPHILS # 3.9 K/mm3 (1.8-7.7); NEUTROPHILS % 74.3 % (36.0-66.0); PLATELET COUNT, AUTOMATED 234 k/mm3 (150-450); RED CELL DISTRIBUTION WIDTH 15.1 % (11.5-14.5); WHITE BLOOD COUNT 5.3 K/mm3 (4.0-10.0)
[2016-03-24 05:39] LABS: ANION GAP 11 MEQ/L (8-16); BLOOD UREA NITROGEN 18 MG/DL (7-18); CALCIUM LEVEL 8.2 MG/DL (8.8-10.2); CARBON DIOXIDE LEVEL 23 MEQ/L (21-32); CHLORIDE LEVEL 108 MEQ/L (98-107); GLOMERULAR FILTRATION RATE > 60.0 (>35); GLUCOSE, FASTING 87 MG/DL (83-110); MAGNESIUM LEVEL 1.7 MG/DL (1.8-2.4); POTASSIUM SERUM 3.3 MEQ/L (3.5-5.1); SODIUM LEVEL 142 MEQ/L (136-145)
[2016-03-24] MEDS: NS 1,000 ML IV SCH ×2 (05:53→17:01)
[2016-03-24] MEDS: ACETAMINOPHEN TAB 650MG DOSE (2X325MG) PO PRN ×2 (05:59→11:33)
[2016-03-24] MEDS ORDERED: QUINAPRIL 20 MG TAB PO SCH (09:00)
[2016-03-24] MEDS: OMEPRAZOLE 20 MG CAP PO SCH (09:21)
[2016-03-24] MEDS: SIMVASTATIN 40 MG TAB PO SCH (09:21)
[2016-03-24] MEDS: ALLOPURINOL 300 MG TAB PO SCH (09:21)
[2016-03-24] MEDS ORDERED: POTASSIUM CHLORIDE 10 MEQ SR TABLET PO ONE (21:45)
[2016-03-24] MEDS ORDERED: MAG SULF 1GM/100ML (MAG RUN) 1 GM in APPROPRIATE DILUENT 1 EA IV ONE (22:15)
--- NOTE | 2016-03-24 22:20 | IPNPDOC ---
Assessment/Plan Date Seen The patient was seen on 03/24/16. Problems Problems: (1) Dehydration Status: Acute Response to Treatment: Improving Problem Text: * continue IV fluids * secondary to diarrhea, pt had one bowel movement today was liquid * gi panel pending (2) Hypokalemia Status: Acute Problem Text: * continue to replace and recheck (3) Hypomagnesemia Status: Acute Problem Text: replace and recheck (4) Afib Status: Chronic Response to Treatment: Stable Problem Text: * continue pradaxa and ca channel jerman * rate is rapid due to hypovolemia (5) HTN (hypertension) Status: Chronic Response to Treatment: Stable (6) Gout Status: Chronic Response to Treatment: Stable (7) Parkinson disease Status: Chronic Plan / VTE VTE Prophylaxis Ordered?: Yes Subjective Review of Systems CC/HPI The patient is a 85-year-old male admitted with a reason for visit of Weakness. Constitutional: Denies: Chills, Fever, Malaise, Night Sweats, Weakness Pulmonary: Reports: Cough, Denies: Dyspnea Cardiovascular: Denies: Chest Pain, Lt Headedness, Orthopnea, Palpitations, Paroxysmal Noc. Dyspnea Objective Physical Examination General Exam: Positive: No Acute Distress ENT Exam: Positive: Atraumatic, Mucous membr. moist/pink, Pharynx Normal Chest Exam: Positive: Clear to auscultation, Normal air movement Heart Exam: Positive: Tachycardic Abdomen Exam: Positive: Normal bowel sounds, Soft, Negative: Hepatospenomegaly, Tenderness Extremity Exam: Positive: Normal pulses, Negative: Clubbing, Cyanosis, Edema Vital Signs/I&O Vital Signs Date Time Temp Pulse Resp B/P Pulse Ox O2 Delivery O2 Flow Rate FiO2 03/24/16 21:13 95.7 121 20 127/74 95 Room Air 03/24/16 08:00 2.0 I&O- Last 24 Hours up to 6 AM 03/24/16 06:00 Intake Total 300 ml Output Total 200 ml Balance 100 ml Laboratory Data Labs 24H Laboratory Tests 2 03/24/16 05:07: Anion Gap 11, White Blood Count 5.3, Red Blood Count 3.75L, Hemoglobin 11.6L, Hematocrit 35.8L, Mean Corpuscular Volume 95.6, Mean Corpuscular Hemoglobin 31.0 , Mean Corpuscular Hemoglobin Concent 32.4, Red Cell Distribution Width 15.1H, Platelet Count 234, Neutrophils (%) (Auto) 74.3H, Lymphocytes (%) (Auto) 14.2L, Monocytes (%) (Auto) 6.6H, Eosinophils (%) (Auto) 0.2, Basophils (%) (Auto) 0.7 , Neutrophils # (Auto) 3.9, Lymphocytes # (Auto) 1.0L, Monocytes # (Auto) 0.4, Eosinophils # (Auto) 0.0, Basophils # (Auto) 0.0, Blood Urea Nitrogen 18, Creatinine 0.90, Sodium Level 142, Potassium Level 3.3L, Chloride Level 108H, Carbon Dioxide Level 23, Calcium Level 8.2L, Glomerular Filtration Rate > 60.0, Large Unclassified Cells # 0.2, Large Unclassified Cells % 4.0, Magnesium Level 1.7L CBC/BMP Laboratory Tests 03/24/16 05:07 Calcium Level 8.2 L, Red Blood Count 3.75 L, Mean Corpuscular Volume 95.6, Mean Corpuscular Hemoglobin 31.0, Mean Corpuscular Hemoglobin Concent 32.4, Red Cell Distribution Width 15.1 H, Neutrophils (%) (Auto) 74.3 H, Lymphocytes (%) (Auto ) 14.2 L, Monocytes (%) (Auto) 6.6 H, Eosinophils (%) (Auto) 0.2, Basophils (%) (Auto) 0.7, Neutrophils # (Auto) 3.9, Lymphocytes # (Auto) 1.0 L, Monocytes # ( Auto) 0.4, Eosinophils # (Auto) 0.0, Basophils # (Auto) 0.0 Microbiology Microbiology 03/23/16 Blood Culture - Preliminary, Resulted No growth after 24 hours . All specim... 03/23/16 Blood Culture - Preliminary, Resulted No growth after 24 hours . All specim... 03/23/16 Influenza Virus Type A Antigen - Final, Complete 03/23/16 Influenza Virus Type B Antigen - Final, Complete RENNY MUSE DO Mar 24, 2016 22:20
[2016-03-25] VITALS (13 sets, daily range): BP systolic 112–144; BP diastolic 58–87
[2016-03-25] MEDS: IPRATROPIUM 0.5MG/ALBUTEROL 2.5MG INH SOL UD 3ML (DUONEB)(J7620) NEB SCH ×4 (01:46→20:44)
[2016-03-25 05:47] LABS: BASO % 0.1 % (0.0-1.0); EOS % 0.7 % (0.0-3.0); LARGE UNSTAINED CELL # 0.2 K/mm3 (0.0-0.4); LARGE UNSTAINED CELL % 2.4 % (0.0-4.0); LYMPH # 0.6 K/mm3 (1.5-4.5); LYMPH % 7.4 % (24.0-44.0); MEAN CORPUSCULAR HGB CONC 31.4 g/dl (32.0-36.5); MEAN CORPUSCULAR VOLUME 95.4 fl (80.0-96.0); MONO # 0.4 K/mm3 (0.0-0.8); MONO % 4.6 % (0.0-5.0); NEUTROPHILS # 6.4 K/mm3 (1.8-7.7); NEUTROPHILS % 84.8 % (36.0-66.0); PLATELET COUNT, AUTOMATED 288 k/mm3 (150-450); RED CELL DISTRIBUTION WIDTH 14.2 % (11.5-14.5); WHITE BLOOD COUNT 7.6 K/mm3 (4.0-10.0)
[2016-03-25 06:02] LABS: BLOOD UREA NITROGEN 15 MG/DL (7-18); CALCIUM LEVEL 8.6 MG/DL (8.8-10.2); CARBON DIOXIDE LEVEL 21 MEQ/L (21-32); CREATININE FOR GFR 0.94 MG/DL (0.70-1.30); GLOMERULAR FILTRATION RATE > 60.0 (>35); GLUCOSE, FASTING 114 MG/DL (83-110); MAGNESIUM LEVEL 1.9 MG/DL (1.8-2.4)
[2016-03-25 06:26] LABS: POTASSIUM SERUM 3.4 MEQ/L (3.5-5.1); SODIUM LEVEL 141 MEQ/L (136-145)
[2016-03-25 06:27] LABS: ANION GAP 11 MEQ/L (8-16); CHLORIDE LEVEL 109 MEQ/L (98-107)
[2016-03-25] MEDS: NS 1,000 ML IV SCH ×2 (07:31→22:01)
[2016-03-25] MEDS: DABIGATRAN ETEXILATE 75 MG CAP (PRADAXA) PO SCH (08:00)
[2016-03-25] MEDS: SIMVASTATIN 40 MG TAB PO SCH (08:00)
[2016-03-25] MEDS: SINEMET 25-100 MG TAB PO SCH ×3 (08:01→22:40)
[2016-03-25] MEDS: ALLOPURINOL 300 MG TAB PO SCH (08:01)
[2016-03-25] MEDS: OMEPRAZOLE 20 MG CAP PO SCH (08:01)
--- NOTE | 2016-03-25 09:18 | REP ---
PORTABLE CHEST X-RAY: TWO VIEWS PRESENTED. History: Shortness of breath. Comparison study: March 23, 2016. Findings: Today's views are exposed at a slightly lesser inspiratory level. Old granulomatous calcifications are again noted bilaterally. Heart is mildly enlarged as before. No infiltrate is seen. EKG monitoring electrodes are noted. There are degenerative changes in the shoulders and in the thoracic aorta. Impression: Old granulomatous calcifications. No acute infiltrate. Mildly enlarged heart. Signed by Juaquin Zazueta MD 03/25/2016 10:31 A
[2016-03-25] MEDS: cefTRIAXone SOD 1 GM in D5W MINI-BAG PLUS 50 ML IV SCH (09:21)
[2016-03-25] MEDS: ACETAMINOPHEN TAB 650MG DOSE (2X325MG) PO PRN (09:55)
--- NOTE | 2016-03-25 11:29 | REP ---
CT pelvis without contrast 03/25/2016 Indication: Obstruction versus ileus Study read in conjunction with CT abdomen also performed today. Findings: There is generalized under distension and/or spasm seen from the mid sigmoid colon through rectum. Area of possible fixed narrowing suggested within the mid sigmoid on images 52 and 53 series 201. Additionally there is a 2.7 cm left inguinal hernia which appears to contain fluid There is a mildly dilated prostatic urethra with mural thickening. There is no free intraperitoneal air. As discussed in CT of the abdomen performed earlier today , air-fluid levels are seen within the more proximal distended small bowel and colon. Impression : focal tapering / narrowing from the mid sigmoid through rectum. Ddx includes fixed narrowing, possibly in mid sigmoid on images 52 and 53 series 201, vs. spasm/under distension. Additionally there is a 2.7 cm left inguinal hernia which appears to contain fluid . Incarcerated fluid-filled small loop of sigmoid colon cannot be completely excluded. Consider CT of the abdomen and pelvis with rectal contrast, or colonoscopy Mild dilatation and mural thickening of prostatic urethra Signed by Josephine Merritt MD 03/25/2016 11:20 A
[2016-03-25] MEDS: METOCLOPRAMIDE INJ 10MG/2ML VIAL (J2765) IV SCH ×2 (14:46→19:19)
[2016-03-25] MEDS: MORPHINE 2 MG/ML 1ML SYRINGE IV PRN (14:48)
--- NOTE | 2016-03-25 15:23 | CR ---
DATE OF CONSULTATION: 03/23/2016 REASON FOR CONSULTATION: The patient is seen today on consult for abdominal distention and possible small bowel obstruction. CHIEF COMPLAINT: Possible small bowel obstruction. HISTORY OF PRESENT ILLNESS: The patient is an 85-year-old male with a history of Parkinson's, chronic atrial fibrillation, Shaw's esophagus, chronic obstructive pulmonary disease (COPD). He presented to the hospital with coughing and being very weak. He was diagnosed with dehydration, diarrhea, cough, and atrial fibrillation. Since his stay in the hospital, the patient has had abdominal pain that has worsened. The abdominal pain has been for the past week and is on the right side. The patient describes the pain as sharp and comes and goes. The patient is unsure if he has had any abdominal distention. The patient says that he has not had any changes in bowel habits, but has had some loose stools and diarrhea for the past few days. Last bowel movement was this morning and was loose. The patient also complains of having aches and pains all over. The patient describes having new back pain in his low mid back. Was consulted due to increasing abdominal pain and possible small bowel obstruction on CT of the abdomen. CT was performed this morning and also was followed up with a CT of the pelvis. The patient has a history of abdominal surgery that includes right inguinal hernia repair last year. On CT examination, left inguinal hernia that is 2.7 cm and contains fluid. The resident is afebrile. Does not have an elevated white count and lactic acid was 1.9 this morning. Chest x-ray recently , two days ago on the , showed no acute infiltrates. The patient is tachycardic with recent heart rate 152. The patient is very lethargic on examination. The patient's recent temperature was 96.9 degrees Fahrenheit. PAST MEDICAL HISTORY: 1. Parkinson's. 2. Chronic atrial fibrillation. 3. Hypertension. 4. Prostate cancer. 5. Gastroesophageal reflux disease (GERD). 6. Shaw's esophagus. 7. Gout. 8. Hyperlipidemia. 9. Chronic obstructive pulmonary disease (COPD). PAST SURGICAL HISTORY: 1. Bilateral knee replacement. 2. Cholecystectomy. 3. Transurethral resection of prostate (TURP). 4. Appendectomy. 5. Bilateral eye surgery. 6. Bilateral varicose vein stripping. 7. Multiple hernia repairs. Last hernia repair was last year on the right inguinal canal. SOCIAL HISTORY: The patient currently lives alone. Drinks two to three glasses of alcohol weekly. Quit smoking a long time ago. ALLERGIES: No known drug allergies. HOME MEDICATIONS: Please history and physical for medications. REVIEW OF SYSTEMS: CONSTITUTIONAL: The patient denies chills, fevers, night sweats. PULMONARY: The patient denies cough or shortness of breath. CARDIOVASCULAR: The patient denies chest pain or palpitations. ABDOMEN: No constipation, nausea or vomiting. PHYSICAL EXAMINATION: GENERAL: The patient is lethargic but alert and orientated. No acute distress. Is not comfortable, is in pain. VITAL SIGNS: Temperature 96.6, pulse 152, respiratory rate 20, blood pressure 124/67, pulse oximetry 95% on room air. HEENT: Pupils are equal and reactive to light and accommodation. Extraocular muscles intact. HEART: Tachycardic with an irregular rhythm. LUNGS: Equal bilaterally. ABDOMEN: Bowel sounds heard to auscultation. Abdomen is distended. Abdomen is soft and thin. There is some mild tenderness on the right side. No rebound tenderness or guarding or rigidity is palpated. No masses or organomegaly palpated. EXTREMITIES: No lower extremity edema. RECENT LABORATORIES: White blood cell count is 7.6, hemoglobin 12.5, hematocrit 39.7, platelets 288. Sodium 141, potassium 3.4, chloride 109, CO2 of 21, BUN 15, creatinine 0.94, glucose 114. Lactic acid performed this morning was 1.9. Blood cultures negative at 24 hours times two. ASSESSMENT: The patient is an 85-year-old male with right sided abdominal pain and possible small bowel obstruction. The abdomen is distended but no peritoneal signs were found on examination. The patient has had some diarrhea this morning. The patient does not show any signs of strangulation or infarction. The patient' s lactic acid was low at 1.9 and not elevated. The patient does have a left inguinal hernia but this is small and was reducible. The patient is however tachycardic on examination. We will attempt a nasogastric tube to help decompress the abdomen and help the patient feel better. We will continue with electrolyte replacement for dehydration and we will await stool culture as it has been ordered but not collected at this time. Will discuss assessment and plan with Dr. Adam Morales. We will continue to monitor the patient over the next day for improvement. My preceptor for this patient encounter was Dr. Adam Morales. The preceptor was physically present in the building during the encounter and was fully available. As needed, all aspects of the patient interview, examination, medical decision making process, and medical care plan development were reviewed and approved by the preceptor. The preceptor is aware and concurs with the plan as stated in the body of this note and will attest to such by his/her cosignature. Attending note: Pt was seen and examined with the resident and I agree with the above note. Mr. Holley has diffuse distention of the stomach, small bowel and large bowel. This could be due to ileus vs. less likely rectal stricture. He has had loose stools for a while along with history of pelvic radiation from prostate CA which goes along with rectal narrowing. However, if this was the case you would expect the large bowel to be more distended, and the small bowel would be less distended. For now will treat like generalized ileus with electrolyte replacement, NGT, abx, and IVF. Will follow. Ambrose Morales DO MTDD
[2016-03-25] MEDS ORDERED: METOPROLOL 5 MG/5 ML VIAL IV STA ×2 (15:24→16:28)
[2016-03-25] MEDS ORDERED: DIGOXIN INJ 0.5 MG/2 ML AMP (J1160) IV STA (15:27)
--- NOTE | 2016-03-25 16:36 | REP ---
CT abdomen without IV or oral contrast 03/25/2016 Indication: Abdominal pain Comparison: CT pelvis 04/02/2015 Findings: Multiple calcified granulomata are identified in the lung bases bilaterally. A small amount of bibasilar fibro atelectatic changes. Minimal bibasilar elect cyst is noted. There is trace intra-abdominal ascites, surrounding the liver this represents interval change when compared with CT pelvis 04/02/2015. Spleen is not enlarged. The pancreas is somewhat atrophic. Gallbladder is surgically absent. Adrenal glands are normal. The kidneys are without hydronephrosis. There is moderate gastric distension. Multiple air- fluid levels are seen throughout the small bowel and colon to the level of the proximal sigmoid. There is no bowel wall thickening. Moderate atherosclerotic changes are noted in the abdominal aorta. There is a 12 mm left periaortic infrarenal lymph node , which represents interval change. There is no free air. Degenerative disc changes are seen throughout the lumbosacral spine most pronounced at L 3-4 and L4-5 with significant central canal stenosis contributed to by facet osteoarthritis and facet hypertrophy bilaterally. There is grade 1 anterolisthesis and L4 bilaterally, degenerative in etiology. Impression: Scattered air-fluid levels seen in the stomach, small bowel and colon consistent with ileus or obstruction. It will be necessary to obtain CT of pelvis to exclude possible obstructing lesion. No free intraperitoneal air. Minimal ascites anterior to the dome of liver. Case discussed with patient's nurse, Brittany , on 03/25/16 at 10 05 am. Signed by Josephine Merritt MD 03/25/2016 04:26 P
[2016-03-25] MEDS ORDERED: DIGOXIN INJ 0.5 MG/2 ML AMP (J1160) IV ONE ×2 (16:45→22:00)
--- NOTE | 2016-03-25 17:30 | REP ---
Clinical: Bilateral pain and swelling. Technique: Gutierrez scale and color Doppler evaluation using linear high frequency transducer. Findings: Ultrasound examination of the right and left lower extremity deep venous structures from the common femoral vein to the popliteal vein demonstrates normal compressibility flow and wave patterns in response to respiration and augmentation. There is no evidence for deep venous thrombosis. Impression: No evidence for deep venous thrombosis. Signed by Kole Vázquez MD 03/25/2016 05:21 P
--- NOTE | 2016-03-25 18:06 | CR.PDOC ---
[facility] Cardiology Consultation Date of Consultation 03/25/16 Cadiology Consultation REFERRING PHYSICIAN: Dr. Mobley REASON FOR REFERRAL: A. fib HISTORY OF PRESENT ILLNESS: Pt is an 85 y/o male with past medical history of Parkinson's disease, chronic a. fib, prostate ca s/p TURP, COPD, who presented to ED after experiencing 2 week history of productive cough, diarrhea and chills. The pt is seen and examined at bedside, although he is alert and orientated he appears drowsy and keeps trying to fall asleep during the exam/questions. The pt states that he is in no pain at the moment, denies CP or palpitations, nor SOB, states his mid to lower back hurts but that is about it. The pt does not follow with any [employer] in [place], [place] and he states he has never had a heart attack nor had cardiac cath. procedure performed. He tells me he has known about his irregular heart rhythm but cannot admit to when he was first diagnosed. The pt. is resting comfortably in bed and does not appear labored or toxic. Echocardiogram Doppler: none to date [Regadenoson/Dobutamine] stress SPECT myocardial perfusion imaging [DATE] 1. n/a ALLERGIES: Please see below. HOME MEDICATIONS: Please see below. CURRENT MEDICATIONS: Please see below. PAST MEDICAL & SURGICAL HISTORY: 1. Parkinsons 2. A. fib 3. COPD 4. Prostate cancer s/p TURP 5. HTN Past Surgical Hx: 1. Cholecystectomy 2. B/L knee replacement 3. Appendectomy 4. TURP 5. Numerous hernia repairs SOCIAL HISTORY:L Pt lives alone. Quit smoking 40 years prior, was .5 ppd smoker. Drinks 2-3 alcoholic beverages a week. REVIEW OF SYSTEMS: Cardio: Denies CP, palpitations or syncope, LOC Resp: Denies SOB, cough, wheeze, recent URI Abdominal: Admits to some abdominal achy pain where he has a left groin hernia, otherwise no pain in abdomen GI-Admits to no changes in his bowel habits - Admits to no changes in urinary habits/patterns, no hematuria or dysuria HEENT: no change in vision or hearing, denies sore throat All other 10 point review of systems questions negative. FAMILY HISTORY: pt cannot remember or tell me if there is a cardiac history in his family. PHYSICAL EXAMINATION: VITAL SIGNS: Please see below. GENERAL APPEARANCE: Pt appears comfortable in bed, laying down EYES: EOMI, non-icteric sclera, PERRLA, EOMI ENT/Mouth: Moist mucus membranes, tongue midline, nares patent b/l NECK: no thyromegaly or lymphadenopathy appreciated EXTREMITIES: no cyanosis or edema noted SKIN: intact but dry, some scaling on right LE ankle area NEUROLOGIC/PSYCHOLOGIC: no focal deficits appreciated MUSCULOSKELETAL: strength intact 4/5 b/l UE, 4/5 LE b/l HEART: irregularly irregular, rate 140's, normal s1 and s2, no murmur appreciated one exam, nor rubs or gallops ARTERIAL PULSES: + dorsalis and posterior tibial pulses b/l LOWER EXTREMITY EDEMA: negative ABDOMEN: NABS x4, non-distended, minimally tender where left groin hernia is, this is reducible, no organomegaly appreciated Electrocardiogram: 03-23-16 showed A. fibrillation and low QRS voltage LABORATORY DATA: Please see below. IMAGING: CXR on March 23, 2016 showed mildly enlarged heart ASSESSMENT/PLAN: 1. A. fib- Pt received Digoxin for rate control, .125 mg, this did not control his rate and thus he was given another .5 mg. HR now in 110's. Will d/c Pradaxa , quinapril and Cardizem at this time as pt may be going to surgery in the near future and it would be unfavorable to have long acting agents on board. Suspect that pts recent rapid a. fib is likely due to poor medication absorption secondary to diarrhea from likely viral enteritis. Will continue IV Digoxin for rate control. Once pt is medically stabilized and diarrhea has resolved, switch back to PO agent. 2. HTN- pts BP has been stable, will not suggest a change in medication at this point in time 3. COPD- this is chronic for the pt., denies SOB at bedside on exam. Will leave to primary team for management. Thank you kindly for asking me to participate in the care of your patient. Addendum MD Christina: Patient seen and examined. Records reviewed. Agree with . Elderly man with chronic atrial fibrillation. Rate control is likely poor due to poor medication absorption. Will switch to iv digoxin. Further medication adjustments as above. Patient is quite ill. Will follow patient with you. Vital Signs/I&O Vital Signs Date Time Temp Pulse Resp B/P Pulse Ox O2 Delivery O2 Flow Rate FiO2 03/25/16 17:01 111 119/81 03/25/16 16:00 Room Air 03/25/16 15:15 96.1 22 95 03/24/16 08:00 2.0 I&O- Last 24 Hours up to 6 AM 03/25/16 06:00 Intake Total 2425 ml Output Total 800 ml Balance 1625 ml Laboratory Data Labs 24H Laboratory Tests 2 03/25/16 05:18: Anion Gap 11, White Blood Count 7.6, Red Blood Count 4.16L, Hemoglobin 12.5L, Hematocrit 39.7L, Mean Corpuscular Volume 95.4, Mean Corpuscular Hemoglobin 30.0 , Mean Corpuscular Hemoglobin Concent 31.4L, Red Cell Distribution Width 14.2, Platelet Count 288, Neutrophils (%) (Auto) 84.8H, Lymphocytes (%) (Auto) 7.4L, Monocytes (%) (Auto) 4.6, Eosinophils (%) (Auto) 0.7, Basophils (%) (Auto) 0.1, Neutrophils # (Auto) 6.4, Lymphocytes # (Auto) 0.6L, Monocytes # (Auto) 0.4, Eosinophils # (Auto) 0.0, Basophils # (Auto) 0.0, Blood Urea Nitrogen 15, Creatinine 0.94, Sodium Level 141, Potassium Level 3.4L, Chloride Level 109H, Carbon Dioxide Level 21, Calcium Level 8.6L, Glomerular Filtration Rate > 60.0, Large Unclassified Cells # 0.2, Large Unclassified Cells % 2.4, Magnesium Level 1.9 03/25/16 10:11: Lactic Acid Level 1.9 CBC/BMP Laboratory Tests 03/25/16 05:18 Calcium Level 8.6 L, Red Blood Count 4.16 L, Mean Corpuscular Volume 95.4, Mean Corpuscular Hemoglobin 30.0, Mean Corpuscular Hemoglobin Concent 31.4 L, Red Cell Distribution Width 14.2, Neutrophils (%) (Auto) 84.8 H, Lymphocytes (%) ( Auto) 7.4 L, Monocytes (%) (Auto) 4.6, Eosinophils (%) (Auto) 0.7, Basophils (% ) (Auto) 0.1, Neutrophils # (Auto) 6.4, Lymphocytes # (Auto) 0.6 L, Monocytes # (Auto) 0.4, Eosinophils # (Auto) 0.0, Basophils # (Auto) 0.0 Microbiology Microbiology 03/23/16 Blood Culture - Preliminary, Resulted No Growth after 48 hours. All Specime... 03/23/16 Blood Culture - Preliminary, Resulted No Growth after 48 hours. All Specime... 03/23/16 Influenza Virus Type A Antigen - Final, Complete 03/23/16 Influenza Virus Type B Antigen - Final, Complete 03/25/16 Urine Culture, Received Pending Home Medications Scheduled Allopurinol (Zyloprim) 300 Mg Tab 300 MG PO DAILY (Reported) Carbidopa/Levodopa (Carbidopa/Levodopa 25-100 mg) 1 Tab Tab 1 TAB PO TID ( Reported) Dabigatran Etexilate (Pradaxa) 150 Mg Cap 150 MG PO BID (Reported) PT STATES HE HAS NOT TAKEN IN ABOUT A WEEK Diltiazem HCl (Cartia Xt) 120 Mg Cap 120 MG PO DAILY (Reported) Omeprazole (Omeprazole) 40 Mg Cap 40 MG PO DAILY (Reported) Quinapril Hcl (Accupril) 20 Mg Tab 20 MG PO DAILY (Reported) Simvastatin - High Dose (Zocor) 40 Mg Tab 40 MG PO DAILY (Reported) Current Medications Current Medications Acetaminophen (Tylenol) 650 mg Q4HP PRN PO MILD PAIN OR FEVER Last administered on 03/25/16 09:55; Start 03/23/16 at 18:45; Stop 04/22/16 at 18:44 Albuterol/ Ipratropium (Duoneb (Ipr 0.5mg/Alb 2.5mg)) 3 ml Q2HP PRN NEB SOB/ WHEEZING; Start 03/23/16 at 18:45; Stop 04/22/16 at 18:44 Albuterol/ Ipratropium (Duoneb (Ipr 0.5mg/Alb 2.5mg)) 3 ml RQ6H NEB Last administered on 03/25/16 13:44; Start 03/23/16 at 20:00; Stop 04/22/16 at 19:59 Albuterol/ Ipratropium (Duoneb (Ipr 0.5mg/Alb 2.5mg)) 3 ml STK-MED ONCE As Ordered ; Start 03/23/16 at 14:58; Stop 03/23/16 at 14:59; Status DC Allopurinol (Zyloprim) 300 mg DAILY PO Last administered on 03/25/16 08:01; Start 03/24/16 at 09:00; Stop 04/23/16 at 08:59 Carbidopa/Levodopa (Sinemet 25/100) 1 tab TID PO Last administered on 03/25/16 15:39; Start 03/23/16 at 21:00; Stop 04/22/16 at 20:59 Ceftriaxone Sodium/Dextrose (Rocephin/ Dextrose 5% Mini-Bag Plus) 50 ml @ 100 mls/hr Q24H IV Last administered on 03/25/16 09:21; Start 03/25/16 at 09:00; Stop 04/01/16 at 08:59 Dabigatran (Pradaxa) 150 mg BID PO Last administered on 03/25/16 08:00; Start 03/23/16 at 21:00; Stop 03/30/16 at 20:59 Digoxin (Lanoxin) 0.125 mg STAT STAT IV Last administered on 03/25/16 15:39; Start 03/25/16 at 15:27; Stop 03/25/16 at 15:28; Status DC Digoxin (Lanoxin) 0.5 mg ONCE ONCE IV Last administered on 03/25/16 16:51; Start 03/25/16 at 16:45; Stop 03/25/16 at 16:49; Status DC Diltiazem HCl (Cardizem Cd) 120 mg DAILY PO Last administered on 03/25/16 08:01 ; Start 03/24/16 at 09:00; Stop 03/25/16 at 08:35; Status DC Diltiazem HCl 60 mg 60 mg Q6H PO ; Start 03/25/16 at 18:00; Stop 04/24/16 at 17:59 Home Med ASDIRECTED XX ; Start 03/23/16 at 17:45; Stop 03/23/16 at 17:47; Status DC Magnesium Sulfate/ Dextrose/IV Miscellaneous Supplies (Mag Sulf 1gm/ 100ml (Mag Run)) 100 ml @ 100 mls/hr ONCE ONCE IV Last administered on 03/24/16 23:43; Start 03/24/16 at 22:15; Stop 03/24/16 at 23:14; Status DC Metoclopramide HCl (Reglan) 5 mg Q6H IV Last administered on 03/25/16 14:46; Start 03/25/16 at 13:00; Stop 04/24/16 at 12:59 Metoprolol Tartrate (Lopressor) 5 mg STAT STAT IV ; Start 03/25/16 at 15:24; Stop 03/25/16 at 15:28; Status DC Metoprolol Tartrate (Lopressor) 5 mg STAT STAT IV Last administered on 16:45; Start 03/25/16 at 16:28; Stop 03/25/16 at 16:30; Status DC Morphine Sulfate (Morphine Sulfate Inj) 1 mg Q4HP PRN IV PAIN Last administered on 03/25/16 14:48; Start 03/25/16 at 14:30; Stop 04/01/16 at 14:29 Omeprazole (PriLOSEC) 40 mg DAILY PO Last administered on 03/25/16 08:01; Start 03/24/16 at 09:00; Stop 04/23/16 at 08:59 Ondansetron HCl (Zofran) 4 mg Q6HP PRN IV NAUSEA OR VOMITING; Start 03/23/16 at 18:45; Stop 04/22/16 at 18:44 Ondansetron HCl (Zofran) 4 mg Q6HP PRN PO NAUSEA OR VOMITING; Start 03/23/16 at 18:45; Stop 04/22/16 at 18:44 Potassium Chloride 40 meq 40 meq ONCE ONCE PO Last administered on 03/24/16 23 :44; Start 03/24/16 at 21:45; Stop 03/24/16 at 21:46; Status DC Potassium Chloride (Micro-K Extencaps) 40 meq ONCE ONCE PO Last administered on 03/24/16 00:28; Start 03/23/16 at 23:50; Stop 03/23/16 at 23:52; Status DC Quinapril HCl (Accupril) 20 mg DAILY PO Last administered on 03/24/16 09:21; Start 03/24/16 at 09:00; Stop 03/24/16 at 22:19; Status DC Simvastatin (Zocor) 40 mg DAILY PO Last administered on 03/25/16 08:00; Start 03/24/16 at 09:00; Stop 04/23/16 at 08:59 Sodium Chloride (Nacl 0.9%) 1,000 ml @ 75 mls/hr [id number] IV Last administered on 03/25/16 07:31; Start 03/23/16 at 18:31; Stop 04/22/16 at 18:30 Allergies Allergies: Coded Allergies: No Known Allergies (Unverified , 01/27/14) GME ATTESTATION GME ATTESTATION My preceptor for this patient encounter was physically present in the building during the encounter and was fully available. As needed, all aspects of the patient interview, examination, medical decision making process, and medical care plan development were reviewed and approved by the preceptor. Preceptor is aware and concurs with the plan as stated in the body of this note and will attest to such by his/her cosignature. GUANAKITO JC DO Mar 25, 2016 18:06 Yesenia Peraza MD Mar 25, 2016 22:52
--- NOTE | 2016-03-25 22:25 | IPNPDOC ---
Assessment/Plan Date Seen The patient was seen on 03/25/16. Problems Problems: (1) Ileus Status: Acute Problem Text: * NG tube was attempted but nursing staff were unable to place it * Dr Morales was consulted * pt is NPO (2) Afib Status: Chronic Response to Treatment: Uncontrolled Problem Text: * cardiology was consulted, pt was started on digoxin * cadizem was discontinued since he can't tolerated PO * pradaxa held per cardiology (3) Dehydration Status: Acute Response to Treatment: Improving Problem Text: * continue IV fluids (4) Hypokalemia Status: Acute Problem Text: * continue to replace and recheck (5) Hypomagnesemia Status: Resolved (6) HTN (hypertension) Status: Chronic Response to Treatment: Stable (7) Gout Status: Chronic Response to Treatment: Stable (8) Parkinson disease Status: Chronic Plan / VTE VTE Prophylaxis Ordered?: Yes Subjective Review of Systems CC/HPI The patient is a 85-year-old male admitted with a reason for visit of Weakness. Pulmonary: Reports: Dyspnea Cardiovascular: Denies: Chest Pain, Lt Headedness, Orthopnea, Palpitations, Paroxysmal Noc. Dyspnea Gastrointestinal: Reports: Abdominal Pain, Nausea, Vomiting, Denies: Diarrhea Objective Physical Examination General Exam: Positive: No Acute Distress ENT Exam: Positive: Atraumatic, Mucous membr. moist/pink, Pharynx Normal Chest Exam: Positive: Clear to auscultation, Normal air movement Heart Exam: Positive: Tachycardic Abdomen Exam: Positive: Normal bowel sounds, Soft, Negative: Hepatospenomegaly, Tenderness Extremity Exam: Positive: Normal pulses, Negative: Clubbing, Cyanosis, Edema Vital Signs/I&O Vital Signs Date Time Temp Pulse Resp B/P Pulse Ox O2 Delivery O2 Flow Rate FiO2 03/25/16 22:01 147 03/25/16 20:00 96.7 20 140/68 92 Room Air 03/24/16 08:00 2.0 I&O- Last 24 Hours up to 6 AM 03/25/16 06:00 Intake Total 2425 ml Output Total 800 ml Balance 1625 ml Laboratory Data Labs 24H Laboratory Tests 2 03/25/16 05:18: Anion Gap 11, White Blood Count 7.6, Red Blood Count 4.16L, Hemoglobin 12.5L, Hematocrit 39.7L, Mean Corpuscular Volume 95.4, Mean Corpuscular Hemoglobin 30.0 , Mean Corpuscular Hemoglobin Concent 31.4L, Red Cell Distribution Width 14.2, Platelet Count 288, Neutrophils (%) (Auto) 84.8H, Lymphocytes (%) (Auto) 7.4L, Monocytes (%) (Auto) 4.6, Eosinophils (%) (Auto) 0.7, Basophils (%) (Auto) 0.1, Neutrophils # (Auto) 6.4, Lymphocytes # (Auto) 0.6L, Monocytes # (Auto) 0.4, Eosinophils # (Auto) 0.0, Basophils # (Auto) 0.0, Blood Urea Nitrogen 15, Creatinine 0.94, Sodium Level 141, Potassium Level 3.4L, Chloride Level 109H, Carbon Dioxide Level 21, Calcium Level 8.6L, Glomerular Filtration Rate > 60.0, Large Unclassified Cells # 0.2, Large Unclassified Cells % 2.4, Magnesium Level 1.9 03/25/16 10:11: Lactic Acid Level 1.9 CBC/BMP Laboratory Tests 03/25/16 05:18 Calcium Level 8.6 L, Red Blood Count 4.16 L, Mean Corpuscular Volume 95.4, Mean Corpuscular Hemoglobin 30.0, Mean Corpuscular Hemoglobin Concent 31.4 L, Red Cell Distribution Width 14.2, Neutrophils (%) (Auto) 84.8 H, Lymphocytes (%) ( Auto) 7.4 L, Monocytes (%) (Auto) 4.6, Eosinophils (%) (Auto) 0.7, Basophils (% ) (Auto) 0.1, Neutrophils # (Auto) 6.4, Lymphocytes # (Auto) 0.6 L, Monocytes # (Auto) 0.4, Eosinophils # (Auto) 0.0, Basophils # (Auto) 0.0 Microbiology Microbiology 03/23/16 Blood Culture - Preliminary, Resulted No Growth after 48 hours. All Specime... 03/23/16 Blood Culture - Preliminary, Resulted No Growth after 48 hours. All Specime... 03/23/16 Influenza Virus Type A Antigen - Final, Complete 03/23/16 Influenza Virus Type B Antigen - Final, Complete 03/25/16 Urine Culture, Received Pending RENNY MUSE DO Mar 25, 2016 22:25
[2016-03-26] MEDS: METOCLOPRAMIDE INJ 10MG/2ML VIAL (J2765) IV SCH ×4 (00:19→18:36)
[2016-03-26] MEDS: MORPHINE 2 MG/ML 1ML SYRINGE IV PRN ×4 (00:42→20:11)
[2016-03-26] MEDS: IPRATROPIUM 0.5MG/ALBUTEROL 2.5MG INH SOL UD 3ML (DUONEB)(J7620) NEB SCH ×4 (03:23→19:26)
[2016-03-26] MEDS: ONDANSETRON 4MG/2ML VIAL (J2405) IV PRN ×3 (03:46→16:01)
[2016-03-26 04:00] VITALS: BP 129/70
[2016-03-26 06:03] LABS: BASO % 0.2 % (0.0-1.0); EOS % 0.5 % (0.0-3.0); LARGE UNSTAINED CELL # 0.2 K/mm3 (0.0-0.4); LARGE UNSTAINED CELL % 1.9 % (0.0-4.0); LYMPH # 0.5 K/mm3 (1.5-4.5); LYMPH % 4.6 % (24.0-44.0); MEAN CORPUSCULAR HGB CONC 32.8 g/dl (32.0-36.5); MEAN CORPUSCULAR VOLUME 94.8 fl (80.0-96.0); MONO # 0.5 K/mm3 (0.0-0.8); MONO % 4.7 % (0.0-5.0); NEUTROPHILS # 9.2 K/mm3 (1.8-7.7); NEUTROPHILS % 88.1 % (36.0-66.0); PLATELET COUNT, AUTOMATED 364 k/mm3 (150-450); RED CELL DISTRIBUTION WIDTH 14.2 % (11.5-14.5); WHITE BLOOD COUNT 10.4 K/mm3 (4.0-10.0)
[2016-03-26 06:27] LABS: ANION GAP 13 MEQ/L (8-16); BLOOD UREA NITROGEN 22 MG/DL (7-18); CALCIUM LEVEL 8.5 MG/DL (8.8-10.2); CARBON DIOXIDE LEVEL 18 MEQ/L (21-32); CHLORIDE LEVEL 112 MEQ/L (98-107); CREATININE FOR GFR 1.01 MG/DL (0.70-1.30); GLOMERULAR FILTRATION RATE > 60.0 (>35); GLUCOSE, FASTING 119 MG/DL (83-110); MAGNESIUM LEVEL 1.9 MG/DL (1.8-2.4); POTASSIUM SERUM 3.6 MEQ/L (3.5-5.1); SODIUM LEVEL 143 MEQ/L (136-145)
[2016-03-26 07:30] VITALS: BP 146/72
[2016-03-26] MEDS ORDERED: DIGOXIN INJ 0.5 MG/2 ML AMP (J1160) IV ONE (08:30)
--- NOTE | 2016-03-26 08:39 | IPN ---
DATE: 03/26/2016 Continue followup care for abdominal distention and possible small bowel obstruction. Resident is seen today for followup of consultation. Patient is currently lying in bed and is comfortable. Patient is not complaining of abdominal pain as much as before. There still is some abdominal pain but it has improved. Patient did vomit several times yesterday and last evening. Patient has not vomited since last night. Nasogastric (NG) tube was tried placement several times yesterday afternoon and morning without success. Patient is complaining of less abdominal distention on today's exam. Patient still mentions some mild back pain in his low back due to lying in bed. Patient has had no fevers, chills or night sweats. Patient also has not had any changes in bowel habits or urinary complaints. PHYSICAL EXAMINATION: VITAL SIGNS: Temperature 97.5, heart rate 100, respiratory rate 20, blood pressure 129/70, pulse oximetry 90% on room air. APPEARANCE: Patient is lying comfortably in bed. No acute distress. Patient is cooperative with exam. CARDIAC: Normal S1 and S1 with no clicks, rubs, gallops, or murmurs. LUNGS: Are equal bilaterally. ABDOMEN: Is soft and nontender. Decreased distention from previous exam. Bowel sounds heard to auscultation. EXTREMITY: No lower extremity edema on exam. LABORATORIES: Most recent labs from today show white blood cell count of 10.4, hemoglobin 12.8, hematocrit 39.2, platelet count 364. Sodium 143, potassium 3.9 , chloride 112, CO2 18, BUN 22, creatinine 1.01, fasting glucose 119. ASSESSMENT AND PLAN: Patient will continue current treatment plan at this time. No changes will be made today. Abdomen is still distended, but less so on today's exam. NG tube placement was unsuccessful and was discontinued. Continue current electrolyte replacement for dehydration and awaiting stool culture as before. Will discuss plan with Dr. Adam Morales, and continue to monitor patient as needed. My preceptor for this patient encounter was Adam Morales DO. The preceptor was physically present in the building during the encounter and was fully available. As needed, all aspects of the patient interview, examination, medical decision making process, and medical care plan development were reviewed and approved by the preceptor. The preceptor is aware and concurs with the plan as stated in the body of this note and will attest to such by his/her co-signature. Attending Note: Agree with above note. Less distended today. Continue with supportive care, and replace electrolytes. Will attempt NGT placement if he has any more emesis. Ambrose Morales DO MTDD
--- NOTE | 2016-03-26 08:51 | IPN ---
DATE: 03/26/2016 Mr. Holley did not have a good night. Unfortunately, last night he had again episodes of nausea and vomiting. His heart rate though is better after he received additional doses of intravenous digoxin. He does not have any chest discomfort, and his shortness of breath is not appreciably changed. Vital signs: Blood pressure 129/70, heart rates is from 100 to about 130. He is afebrile. Saturation 92% on room air. His fluid balance was about 1300 positive yesterday but is difficult to quantify the amount of vomitus. Weight is 82 kg. He is alert, oriented times two. His jugular venous pressure is not high. Lungs reveal very loud rhonchi throughout both lung mchugh. Heart exam with somewhat muffled heart sounds. Irregular rhythm. Mildly tachycardiac. Abdomen is distended, soft. I do not appreciate any guarding. I do not appreciate much of bowel sounds and extremities are free of edema. Neurologically, besides generalized weakness, I do not appreciate any other abnormalities. CBC: Hemoglobin 12.8, hematocrit 39, platelet count 363,000. Basic metabolic panel: Potassium 3.6, BUN 22, creatinine 1 and glucose 116. ASSESSMENT AND PLAN: Mr. Holley is an 85-year-old male who came with ileus and has had recurrent episodes of vomiting. Unfortunately, multiple attempts to introduce nasogastric tube failed. Surgical service is involved. He has chronic atrial fibrillation, and I was called because he was markedly tachycardic. In my opinion, it is clearly related to the fact that he was not absorbing any of his medications administered orally. With IV digoxin, his heart rate is much better. I will give him an additional dose today, and I think that once his GI tract recovers we can consider restarting his oral medications. Management of his remaining issues remain with surgery and primary team. DU
[2016-03-26] MEDS: SINEMET 25-100 MG TAB PO SCH ×5 (09:00→20:09)
[2016-03-26] MEDS: ENOXAPARIN 80 MG/0.8 ML SYRINGE (J1650) SC SCH ×2 (09:51→20:09)
[2016-03-26] MEDS: cefTRIAXone SOD 1 GM in D5W MINI-BAG PLUS 50 ML IV SCH (09:51)
[2016-03-26] MEDS: OMEPRAZOLE 20 MG CAP PO SCH (09:52)
[2016-03-26] MEDS: ALLOPURINOL 300 MG TAB PO SCH (09:52)
[2016-03-26] MEDS: SIMVASTATIN 40 MG TAB PO SCH (09:52)
[2016-03-26] MEDS: NS 1,000 ML IV SCH (11:05)
[2016-03-26 12:00] VITALS: BP 134/78
--- NOTE | 2016-03-26 12:01 | EDDOCDS ---
Physician Documentation [facility] Name: Steven Holley Age: 85 yrs Sex: Male : 1930 Arrival Date: 03/23/2016 Time: 12:02 Bed I8 / 16 Private MD: Dean Disposition: 03/23 16:59 Critical Care: Critical care not applicable. pc Disposition: 03/23/16 17:00 Hospitalization ordered by Addie Downing for Inpatient Admission. Preliminary diagnosis are Dehydration, Other viral enteritis, Acute upper respiratory infection, unspecified - viral, Orthostatic hypotension. - Bed requested for PCU. - Status is Inpatient Admission. ld5 - Condition is Stable. - Problem is new. - Symptoms have improved. HPI: 13:32 This 85 yrs old Male presents to ER via Ambulance with complaints of Weakness.pc 13:32 The history is obtained from the patient. He developed a cough 2 weeks ago, pc occasionally productive of white sputum. He has had subjective fevers and has had chills. He developed nausea and watery diarrhea 1 week ago which has nearly resolved. He remains somewhat nauseated, has no appetite, and has had very little po intake in the past 6 days. He feels generally weak, and is unable to walk with his walker and states he doesn't think he can go home because he lives alone and has no help. The patient has not experienced similar symptoms in the past. The patient has not recently seen a physician. 13:32 At their worst, the symptoms were moderate. In the emergency department, the symptoms pc are mild. Historical: - Allergies: no known allergies; - Home Meds: 1. Accupril 40 mg Oral tab 1 tab once daily (Last dose: 03/23/2016) 2. allopurinol 300 mg Oral tab 1 tab once daily (Last dose: 03/23/2016) 3. carbidopa-levodopa 25-100 mg Oral tab 1 tab 3 times per day (Last dose: 03/23/2016) 4. Cartia XT 120 mg Oral cp24 1 cap once daily (Last dose: 03/23/2016) 5. omeprazole 20 mg Oral cpDR 2 caps once daily (Last dose: 03/23/2016) 6. Pradaxa 150 mg oral cap 1 cap 2 times per day (Last dose: Unknown) 7. simvastatin 40 mg Oral tab 1 tab once daily (Last dose: 03/23/2016) - PMHx: Cancer, Prostate; GERD; High Cholesterol; Hypertension; Parkinson's Disease; Diverticulosis; left inguinal hernia (fat-containing only); - PSHx: Hernia repair; Knee surgery; Appendectomy; Cholecystectomy; Varicose Vein Repair; - The history from nurses notes was reviewed: and elements of the historical information I have obtained differs from that reported to nursing. - Social history: Smoking status: Patient states former smoker of tobacco. No barriers to communication noted. - : The pt / caregiver states he / she is on anticoagulants: Pradaxa (Dabigatran) Home medication list is obtained from the facility MAR, Note pt unsure of medications. med list verified in medhost with pt to the best of pt's ability. unable to verify through pharmacy d/t pt using mail order for his prescriptions. . - Hospitalizations: : No recent hospitalization is reported. - Exposure Risk Screening:: None identified. - Immunization history:: All immunizations up-to-date. - Family history: Not pertinent. - Social history:: the patient is a former smoker, the patient does not drink alcohol. ROS: 13:32 All systems are negative except as listed. pc Exam: 13:32 General Appearance: alert, the patient is in mild distress. pc 13:32 EENT: normal eye inspection, ears, nose and throat normal, mucous membranes dry. 13:32 Neck: The exam reveals no acute abnormalities. ROM is normal and painless. No nuchal rigidity is noted.. 13:32 Respiratory: no respiratory distress, chest non-tender, Breath sounds: wheezing, in the left posterior lower lobe and right posterior lower lobe. 13:32 CVS: normal S1 and S2, no murmurs, strong peripheral pulses, normal capillary refill, the patient is tachycardic, at 118 bpm, irregularly irregular 13:32 Abdomen: soft, no organomegaly, normal bowel sounds, mild tenderness in the left lower quadrant, without rebound, voluntary guarding is not appreciated, involuntary guarding is elicited in the left lower quadrant, a hernia is noted in the left inguinal area, and is not incarcerated. 13:32 Back: normal inspection. 13:32 Skin: skin color is normal, warm, dry, the skin turgor is poor. 13:32 Extremities: are non-tender. 13:32 Neuro: oriented x 3, cranial nerves normal as tested, no motor deficits, no sensory deficits. 13:32 Psych: normal mood. Vital Signs: 12:19 BP 116 / 69; Pulse 114; Resp 26; Temp 98(TE); Pulse Ox 96% on R/A; Weight 81.65 kg / mb9 180.01 lbs; Height 6 ft. 2 in. (187.96 cm); Pain 5/10; 13:19 BP 123 / 70 (auto/); ld5 13:19 Pulse 92 MON; Pulse Ox 96% ; ld5 13:49 BP 128 / 66 (auto/); ld5 13:49 Pulse 88 MON; Resp 20; ld5 14:19 BP 135 / 71 (auto/); ld5 14:19 Pulse 88 MON; ld5 14:49 BP 139 / 79 (auto/); ld5 14:57 Pulse 98 MON; Resp 20; Pulse Ox 96% ; ld5 15:19 BP 146 / 73 (auto/); ld5 15:19 Pulse 98 MON; Pulse Ox 96% ; ld5 15:49 BP 134 / 80 (auto/); ld5 15:49 Pulse 100 MON; Resp 18; Temp 98.1(O); Pulse Ox 97% on R/A; ld5 16:38 BP 117 / 64 Supine; Pulse 91; ld5 16:38 BP 99 / 54 Sitting; Pulse 121; ld5 16:38 Pulse 139; ld5 16:38 BP 191 / 92; ld5 17:07 BP 121 / 74 (auto/); ld5 17:07 Pulse 98 MON; Pulse Ox 97% ; ld5 17:19 BP 139 / 80 (auto/); ld5 17:19 Pulse 98 MON; Pulse Ox 98% ; ld5 17:49 BP 133 / 68 (auto/); ld5 17:49 Pulse 98 MON; Pulse Ox 95% ; ld5 18:19 BP 147 / 80 (auto/); ld5 18:19 Pulse 106 MON; Pulse Ox 95% ; ld5 18:49 BP 147 / 80 (auto/); ld5 18:49 Pulse 102 MON; ld5 19:19 BP 144 / 96 (auto/); ld5 19:24 Pulse 116 MON; Resp 18; Temp 98.2; ld5 19:48 Pulse 116 MON; ld5 19:49 BP 137 / 74 (auto/); ld5 20:19 BP 126 / 69 (auto/); ld5 20:20 Pulse 110 MON; Pulse Ox 95% ; ld5 20:49 BP 115 / 70 (auto/); Pulse 112; Resp 18; Temp 98.1; Pulse Ox 95% on R/A; Pain 0/10; ld5 21:19 Pulse 110 MON; Pulse Ox 93% ; ld5 21:19 BP 123 / 74 (auto/); ld5 21:49 Pulse 108 MON; Pulse Ox 95% ; ld5 21:49 BP 109 / 68 (auto/); ld5 22:19 BP 124 / 84 (auto/); ld5 22:19 Pulse 114 MON; Pulse Ox 97% ; ld5 22:49 BP 123 / 67 (auto/); ld5 22:49 Pulse 96 MON; Resp 18; Temp 98.2; Pulse Ox 95% on R/A; ld5 12:19 Body Mass Index 23.11 (81.65 kg, 187.96 cm) mb9 16:38 Pt unable to stand long enough to allow BP to complete. Upon sitting back into bed, BP ld5 completed at read at 191/92 MDM: 12:49 Fingerstick Blood Sugar Ordered. EDMS 12:57 [facility] [place] Payment Agreement was scanned into [employer] and attached to record. lg 13:28 IV Saline Lock ordered. pc 13:28 Concrete Swimming Pool Installer/Pulse Ox/q 30 min VS ordered. pc 13:28 -Blood Culture (Adults Only), peripheral from different site, or from device/port/PICC pc etc. if present ordered. 13:28 NS 0.9% 500 ml IV at bolus once ordered. pc 13:29 Stool samples ordered. pc 13:29 CBC with Diff Ordered. EDMS 13:29 MED Profile Ordered. EDMS 13:29 -Blood Culture Ordered. EDMS 13:29 CIP Ordered. EDMS 13:29 Troponin Ordered. EDMS 13:29 BNP Ordered. EDMS 13:29 Financial registration complete. lg 13:29 -Blood Culture (Adults Only), peripheral from different site, or from device/port/PICC ar3 etc. if present complete. 13:30 ECG WITH READING ER PHYS+CARDIAG ordered. EDMS 13:31 BLOOD CULTURES Ordered. EDMS 13:31 Chest, 1 View Ordered. EDMS 13:32 Differential Diagnosis: cough, diarrhea, dehydration, AFib with RVR. Plan: labs, meds, pc imaging, EKG. 13:42 Test interpretation: EKG. pc 14:09 Albuterol-Ipratropium 3 ml Inhalation once ordered. pc 14:09 Call Respiratory ordered. pc 14:13 Call Respiratory complete. ar3 14:28 CBC with Diff Reviewed. pc 14:28 Fingerstick Blood Sugar Reviewed. pc 14:36 BNP Reviewed. pc 16:08 MED Profile Reviewed. pc 16:08 CIP Reviewed. pc 16:08 Troponin Reviewed. pc 16:11 Orthostatic VS ordered. pc 16:45 BED REQUEST+ADM ordered. EDMS 16:59 Data reviewed: old medical records, vital signs, nurses notes, EKG(s), lab test pc results, all radiology studies and available results. Test interpretation: LAB - all labs as ordered have been reviewed, interpreted and considered in the overall management of the clinical presentation; X-RAY - interpreted by Radiologist and personally reviewed, 1 view chest no acute disease. The patient has been re-examined and re-evaluated. The patient's symptoms have mildly improved after treatment, but he remains orthostatic and too weak to stand on his own, even with his walker. Physician consultation: Dr. Addie Downing was contacted at 16:59, regarding admission. Disposition: The historical points, examination findings, and any diagnostic results supporting the provided diagnosis, were discussed with the patient or legal guardian. The need for further work-up and/or treatment in the hospital was explained. 18:40 PHYSICAL THERAPY EVAL & TREAT ordered. EDMS 18:41 Admission / Observation Status ordered. EDMS 18:41 FULL LIQUIDS DIET ordered. EDMS 18:42 URINALYSIS Ordered. EDMS 18:42 INFLUENZA A&B RAPID ANTIGEN Ordered. EDMS 18:42 GASTROINTESTINAL (GI) PANEL Ordered. EDMS 19:32 CBC WITH DIFFERENTIAL Ordered. EDMS 19:32 BASIC METABOLIC PROFILE Ordered. EDMS 19:32 MAGNESIUM LEVEL Ordered. EDMS 23:31 NS 0.9% 1000 ml IV at 75 mL/hr continuous ordered. ld5 03/24 10:26 ECG/EKG was scanned into [employer] and attached to record. EC/07 13:42 Rate is 90 beats/min. Rhythm is irregularly irregular, A fib. QRS [place] is Normal. IN pc interval is normal. QRS interval is normal. QT interval is normal. No Q waves. T waves are Normal. No ST changes noted. Clinical impression: Atrial Fibrillation w/o RVR. Administered Medications: 14:05 Drug: NS 0.9% 500 ml [sodium chloride 0.9 % intravenous solution] Route: IV; Rate: ld5 bolus; Site: left forearm; 15:10 Follow up: IV Status: Completed infusion; IV Intake: 500ml ld5 15:00 Drug: Albuterol-Ipratropium 3 ml [ipratropium-albuterol 0.5 mg-3 mg(2.5 mg base)/3 mL jc3 nebulization soln (3 mL)] Route: Inhalation; 22:00 Drug: NS 0.9% 1000 ml [sodium chloride 0.9 % intravenous solution] Route: IV; Rate: 75 ld5 mL/hr; Site: left forearm; 23:31 Follow up: IV Status: Infusion continued upon admit ld5 Signatures: Dispatcher [employer] EDIssa Reddy MD MD pc Newman, Jill New, RN RN Diana Tejada, Reg Reg gb ShimaterStuart, Reg Reg lg Anna Garcia, ONCOLOGY PATIENT NAVIGATOR ONCOLOGY PATIENT NAVIGATOR ar3 Narda Bailon RN RN ld5 Balaji Monte RN RN mb9 Foreign Delatorre jc3 The chart was reviewed and I authenticate all verbal orders and agree with the evaluation and treatment provided.Corrections: (The following items were deleted from the chart) 13:39 13:32 The history from nurses notes was reviewed and I agree with what is documented. pcpc 18:42 18:42 GASTROINTESTINAL (GI) PANEL ordered. EDMS EDMS 18:42 18:42 GASTROINTESTINAL (GI) PANEL ordered. EDMS EDMS Attachments: 12:57 [facility] Payment Agreement lg 03/24 10:26 ECG/EKG gb Chart Complete MTDD
--- NOTE | 2016-03-26 12:01 | EDDOCDS ---
Nurse's Notes [facility] Name: Celine Holley Age: 85 yrs Sex: Male : 1930 Arrival Date: 03/23/2016 Time: 12:02 Bed I8 / 16 Private MD: Dean Diagnosis: Dehydration;Other viral enteritis;Acute upper respiratory infection, unspecified-viral;Orthostatic hypotension Presentation: 03/23 12:14 Presenting complaint: Patient states: "I've been coughing for a while and the only mb9 thing I've had to eat is crackers and soda water". pt reports diarrhea. pt reports he was to see his phcp on Friday but felt he needed to be seen now for the symptoms. EMS reports initial blood pressure of 88/64, ems started NS at bolus. EMS reports most recent bp in route of 114/77. 12:14 Acuity: HEBER Level 3 mb9 12:20 The last date and time the patient was known to be well was was at an unknown time on mb9 an unknown date. No acute neurological deficit is noted. Suicide/Homicide risk assessment- the patient denies having any suicidal and/or homicidal ideations and does not present with any other emotional, behavioral or mental health complaints. Status: Patient is not a supervisor customer complaint service or dependent. Transition of care: patient was not received from another setting of care. 12:20 Method Of Arrival: Ambulance mb9 12:30 Adult Sepsis Screening: The patient does not have new or worsening altered mentation. mb9 Patient has a respiratory rate of greater than or equal to 22 (1 point). Systolic blood pressure is greater than 100. Patient has a qSOFA score of 1- Negative Sepsis Screen. 12:31 Care prior to arrival: See EMS report. mb9 12:37 Pre-hospital glucose is not applicable to this patient. mb9 Triage Assessment: 12:31 The onset of the patients symptoms was more than three hours ago. General: Appears mb9 unkempt, Behavior is appropriate for age, cooperative. Pain: Location: abdomen Pain currently is 5 out of 10 on a pain scale. Neurological: Level of Consciousness is awake, alert, Oriented to person, place, time, Lamp Shades Supervisor are equal bilaterally Moves all extremities. Speech is normal, Facial symmetry appears normal, Pupils are PERRLA, Reports weakness. Cardiovascular: Heart tones S1 S2 present Rhythm is sinus tachycardia with PACs. Respiratory: Airway is patent Respiratory effort is even, labored, Breath sounds are coarse bilaterally. Reports cough that is non-productive. GI: Abdomen is flat, non- distended Bowel sounds present X 4 quads. Abd is soft X 4 quads Abd is tender to palpation in left lower quadrant Reports diarrhea. Historical: - Allergies: no known allergies; - Home Meds: 1. Accupril 40 mg Oral tab 1 tab once daily (Last dose: 03/23/2016) 2. allopurinol 300 mg Oral tab 1 tab once daily (Last dose: 03/23/2016) 3. carbidopa-levodopa 25-100 mg Oral tab 1 tab 3 times per day (Last dose: 03/23/2016) 4. Cartia XT 120 mg Oral cp24 1 cap once daily (Last dose: 03/23/2016) 5. omeprazole 20 mg Oral cpDR 2 caps once daily (Last dose: 03/23/2016) 6. Pradaxa 150 mg oral cap 1 cap 2 times per day (Last dose: Unknown) 7. simvastatin 40 mg Oral tab 1 tab once daily (Last dose: 03/23/2016) - PMHx: Cancer, Prostate; GERD; High Cholesterol; Hypertension; Parkinson's Disease; Diverticulosis; left inguinal hernia (fat-containing only); - PSHx: Hernia repair; Knee surgery; Appendectomy; Cholecystectomy; Varicose Vein Repair; - The history from nurses notes was reviewed: and elements of the historical information I have obtained differs from that reported to nursing. - Social history: Smoking status: Patient states former smoker of tobacco. No barriers to communication noted. - : The pt / caregiver states he / she is on anticoagulants: Pradaxa (Dabigatran) Home medication list is obtained from the facility MAR, Note pt unsure of medications. med list verified in medhost with pt to the best of pt's ability. unable to verify through pharmacy d/t pt using mail order for his prescriptions. . - Hospitalizations: : No recent hospitalization is reported. - Exposure Risk Screening:: None identified. - Immunization history:: All immunizations up-to-date. - Family history: Not pertinent. - Social history:: the patient is a former smoker, the patient does not drink alcohol. Screenin:13 Screening information is obtained from the patient. Fall risk: At risk due to gait ld5 disturbance. Assistance ADL's: requires no assistance with activities of daily living. Abuse/DV Screen: The patient / caregiver reports he/she is: not in a situation that causes fear, pain or injury. Nutritional screening: decreased appetite, minimal intake for a week. Advance Directives: Currently, there is no health care proxy. Assessment: 14:06 General: Appears in no apparent distress, ill, Behavior is cooperative. Pain: Location: ld5 abdomen Pain currently is 3 out of 10 on a pain scale. Quality of pain is described as aching. Neurological: Level of Consciousness is awake, alert. Cardiovascular: Heart tones S1 S2 present. Respiratory: Airway is patent Respiratory effort is even, unlabored, Breath sounds are coarse in left posterior lower lobe and right posterior lower lobe Reports cough that is productive. GI: Abdomen is non- distended Bowel sounds present X 4 quads. Abd is soft and non tender X 4 quads. Reports diarrhea, decreased appetite. Pt reports eating only crackers and soda water for past week. : Denies burning with urination, pain with urination. Derm: Skin is intact, is fragile, Skin is dry. 14:06 Musculoskeletal: Swelling present in right knee Reports weakness in right leg and left ld5 leg. 14:35 General: Pt laying in bed with eyes closed. Respirations easy and unlabored. Will ld5 continue to monitor. 14:59 General: Pt receiving respiratory treatment. Will continue to monitor. ld5 15:20 General: Pt reports still felling "no so good" after bolus of NS and respiratory ld5 treatment. Will continue to monitor. 16:10 General: Appears in no apparent distress. General: Pt sleeping. Will monitor. ld5 Respiratory: Airway is patent Respiratory effort is even, unlabored. 16:43 General: Orthostatics attempted with pt. Pt unable to stand long enough for BP to ld5 complete and had to sit back upon bed. Pt reported right leg and LLQ pain. Pt states he broke his leg a year ago but did not know about it until a few months ago. Breathing became labored and pt tachycardic. Provider made aware of pt's results. Will continue to monitor. 17:12 General: Pt made aware of plan for admission. Lights dimmed for comfort. Will continue ld5 to monitor. 18:15 General: Appears in no apparent distress. Respiratory: Airway is patent Respiratory ld5 effort is even, unlabored. 19:19 General: Pt repositioned in bed and dinner tray provided. Awaiting bed assignment. Will ld5 continue to monitor. 20:16 General: Pt some 1/4 of dinner tray. Tolerated well but reported some mild pain to LLQ. ld5 Pt given urinal. Specimen sent to lab. Pt repositioned. Awaiting bed assignment. Will continue to monitor. 20:55 General: Pt sleeping. No apparent distress. Will continue to monitor. ld5 21:37 General: Spoke with Danielle on PCU. Confirmed receipt of SBAR but reports room is not ld5 clean. Will try back. 21:51 General: Pt resting comfortably in bed. Pt updated on room situation. Denies any needs. ld5 Call shafer within reach. Will continue to monitor. 22:50 General: Spoke with Danielle again on PCU. Danielle reports room is currently being cleaned ld5 and Keaton will call once pt can come up. 22:51 General: Appears in no apparent distress. Pain: Pain currently is 2 out of 10 on a pain ld5 scale. Neurological: Level of Consciousness is awake, alert. Respiratory: Airway is patent Respiratory effort is even, unlabored. GI: Denies nausea. Vital Signs: 12:19 BP 116 / 69; Pulse 114; Resp 26; Temp 98(TE); Pulse Ox 96% on R/A; Weight 81.65 kg; mb9 Height 6 ft. 2 in. (187.96 cm); Pain 5/10; 13:19 BP 123 / 70 (auto/); ld5 13:19 Pulse 92 MON; Pulse Ox 96% ; ld5 13:49 BP 128 / 66 (auto/); ld5 13:49 Pulse 88 MON; Resp 20; ld5 14:19 BP 135 / 71 (auto/); ld5 14:19 Pulse 88 MON; ld5 14:49 BP 139 / 79 (auto/); ld5 14:57 Pulse 98 MON; Resp 20; Pulse Ox 96% ; ld5 15:19 BP 146 / 73 (auto/); ld5 15:19 Pulse 98 MON; Pulse Ox 96% ; ld5 15:49 BP 134 / 80 (auto/); ld5 15:49 Pulse 100 MON; Resp 18; Temp 98.1(O); Pulse Ox 97% on R/A; ld5 16:38 BP 117 / 64 Supine; Pulse 91; ld5 16:38 BP 99 / 54 Sitting; Pulse 121; ld5 16:38 Pulse 139; ld5 16:38 BP 191 / 92; ld5 17:07 BP 121 / 74 (auto/); ld5 17:07 Pulse 98 MON; Pulse Ox 97% ; ld5 17:19 BP 139 / 80 (auto/); ld5 17:19 Pulse 98 MON; Pulse Ox 98% ; ld5 17:49 BP 133 / 68 (auto/); ld5 17:49 Pulse 98 MON; Pulse Ox 95% ; ld5 18:19 BP 147 / 80 (auto/); ld5 18:19 Pulse 106 MON; Pulse Ox 95% ; ld5 18:49 BP 147 / 80 (auto/); ld5 18:49 Pulse 102 MON; ld5 19:19 BP 144 / 96 (auto/); ld5 19:24 Pulse 116 MON; Resp 18; Temp 98.2; ld5 19:48 Pulse 116 MON; ld5 19:49 BP 137 / 74 (auto/); ld5 20:19 BP 126 / 69 (auto/); ld5 20:20 Pulse 110 MON; Pulse Ox 95% ; ld5 20:49 BP 115 / 70 (auto/); Pulse 112; Resp 18; Temp 98.1; Pulse Ox 95% on R/A; Pain 0/10; ld5 21:19 Pulse 110 MON; Pulse Ox 93% ; ld5 21:19 BP 123 / 74 (auto/); ld5 21:49 Pulse 108 MON; Pulse Ox 95% ; ld5 21:49 BP 109 / 68 (auto/); ld5 22:19 BP 124 / 84 (auto/); ld5 22:19 Pulse 114 MON; Pulse Ox 97% ; ld5 22:49 BP 123 / 67 (auto/); ld5 22:49 Pulse 96 MON; Resp 18; Temp 98.2; Pulse Ox 95% on R/A; ld5 12:19 Body Mass Index 23.11 (81.65 kg, 187.96 cm) mb9 16:38 Pt unable to stand long enough to allow BP to complete. Upon sitting back into bed, BP ld5 completed at read at 191/92 Vitals: 12:19 Log In Time N/A - ambulance arrival. mb9 12:31 Glucose Measurement fsbs 86. mb9 ED Course: 12:03 Patient visited by Anna Garcia PCA. ar3 12:03 Patient moved to Waiting ar3 12:04 Dean is Private Physician. ar3 12:04 Hui Holley,RN is Primary Nurse. ar3 12:04 Patient moved to 13 ar3 12:05 Patient moved to I8 / 16 [facility] 12:15 Triage Initiated mb9 12:20 Patient has correct armband on for positive identification. Placed in gown. Bed in low ct3 position. Call light in reach. Side rails up X2. 12:25 Patient visited by Yuliana Bangura PCA. ct3 12:25 air sampling and monitoring on. Pulse ox on. NIBP on. ct3 12:38 Maintain field IV. Dressing intact. Good blood return noted. Site clean & dry. Gauge & mb9 site: 18g left hand. 12:57 [facility] Payment Agreement was scanned into Bion[employer] and attached to record. lg 12:59 Issa Aguilar MD is Attending Physician. pc 13:25 Patient visited by Issa Aguilar MD. pc 13:38 EKG done. (by ED staff). Reviewed by Issa Aguilar MD. ct3 13:40 Patient visited by Yuliana Banugra PCA. ct3 14:05 BLOOD CULTURES Sent. ld5 14:05 BNP Sent. ld5 14:05 Troponin Sent. ld5 14:05 CIP Sent. ld5 14:05 -Blood Culture Sent. ld5 14:05 MED Profile Sent. ld5 14:05 CBC with Diff Sent. ld5 14:06 Inserted saline lock: 20 gauge in left forearm and blood collected. The patient ld5 tolerated the procedure well. Labs/Blood culture drawn. 14:08 Patient visited by Narda Bailon,CHITO. ld5 14:56 Patient visited by Narda Bailon,RN. ld5 15:01 Patient visited by Narda Bailon,RN. ld5 15:38 Patient visited by Narda Bailon,RN. ld5 15:47 Patient visited by Narda Bailon,RN. ld5 16:20 Patient visited by Narda Bailon,RN. ld5 16:47 Patient visited by Narda Bailon RN. ld5 17:00 Chang Addie is Hospitalizing Provider. pc 17:10 Chest, 1 View Returned. EDMS 17:13 The patient / caregiver is instructed regarding the plan of care and ED course. ld5 17:14 Patient visited by Narda Bailon RN. ld5 19:06 Patient visited by Vance Winter PCA. kb5 19:21 Patient visited by Narda Bailon RN. ld5 20:15 INFLUENZA A&B RAPID ANTIGEN Sent. ld5 20:18 Patient visited by Narda Bailon RN. ld5 20:38 Patient moved to Admit Hold ml3 20:55 Patient visited by Narda Bailon RN. ld5 21:38 Patient visited by Narda Bailon RN. ld5 21:52 Patient visited by Narda Bailon RN. ld5 21:52 No procedures done that require assistance. ld5 21:54 Patient moved to I8 / 16 ml3 22:03 Patient visited by Vance Winter PCA. kb5 22:51 Patient visited by Narda Bailon RN. ld5 23:07 Patient visited by Narda Bailon RN. ld5 23:12 Patient visited by Narda Bailon RN. ld5 23:31 Patient visited by Narda Bailon RN. ld5 23:42 EKG-ADULT Returned. EDMS 08 10:26 ECG/EKG was scanned into Bion[employer] and attached to record. gb Administered Medications: 03/23 14:05 Drug: NS 0.9% 500 ml [sodium chloride 0.9 % intravenous solution] Route: IV; Rate: ld5 bolus; Site: left forearm; 15:10 Follow up: IV Status: Completed infusion; IV Intake: 500ml ld5 15:00 Drug: Albuterol-Ipratropium 3 ml [ipratropium-albuterol 0.5 mg-3 mg(2.5 mg base)/3 mL jc3 nebulization soln (3 mL)] Route: Inhalation; 22:00 Drug: NS 0.9% 1000 ml [sodium chloride 0.9 % intravenous solution] Route: IV; Rate: 75 ld5 mL/hr; Site: left forearm; 23:31 Follow up: IV Status: Infusion continued upon admit ld5 Intake: 15:10 IV: 500.00ml; Total: 500.00ml. ld5 RT: 15:00 Initial Med Neb Given as ordered. Respiratory: Breath sounds are coarse bilaterally. jc3 Breath sounds with crackles. Order Results: Lab Order: Fingerstick Blood Sugar; SPEC'M 03/23/16 12:35 Test: BEDSIDE GLUCOSE; Value: 86; Range: 83-110; Units: MG/DL; Status: F Lab Order: CBC with Diff; SPEC'M 03/23/16 14:00 Test: WHITE BLOOD COUNT; Value: 5.1; Range: 4.0-10.0; Units: K/mm3; Status: F Test: RED BLOOD COUNT; Value: 4.07; Range: 4.30-6.10; Abnormal: Below low normal; Units: M/mm3; Status: F Test: HEMOGLOBIN; Value: 12.4; Range: 14.0-18.0; Abnormal: Below low normal; Units: g/dl; Status: F Test: HEMATOCRIT; Value: 38.5; Range: 42.0-52.0; Abnormal: Below low normal; Units: %; Status: F Test: MEAN CORPUSCULAR VOLUME; Value: 94.5; Range: 80.0-96.0; Units: fl; Status: F Test: MEAN CORPUSCULAR HEMOGLOBIN; Value: 30.4; Range: 27.0-33.0; Units: pg; Status: F Test: MEAN CORPUSCULAR HGB CONC; Value: 32.1; Range: 32.0-36.5; Units: g/dl; Status: F Test: RED CELL DISTRIBUTION WIDTH; Value: 14.2; Range: 11.5-14.5; Units: %; Status: F Test: PLATELET COUNT, AUTOMATED; Value: 236; Range: 150-450; Units: k/mm3; Status: F Test: NEUTROPHILS %; Value: 77.4; Range: 36.0-66.0; Abnormal: Above high normal; Units: %; Status: F Test: LYMPH %; Value: 11.8; Range: 24.0-44.0; Abnormal: Below low normal; Units: %; Status: F Test: MONO %; Value: 6.4; Range: 0.0-5.0; Abnormal: Above high normal; Units: %; Status: F Test: EOS %; Value: 0.5; Range: 0.0-3.0; Units: %; Status: F Test: BASO %; Value: 0.3; Range: 0.0-1.0; Units: %; Status: F Test: LARGE UNSTAINED CELL %; Value: 3.7; Range: 0.0-4.0; Units: %; Status: F Test: NEUTROPHILS #; Value: 4.0; Range: 1.8-7.7; Units: K/mm3; Status: F Test: LYMPH #; Value: 0.6; Range: 1.5-4.5; Abnormal: Below low normal; Units: K/mm3; Status: F Test: MONO #; Value: 0.3; Range: 0.0-0.8; Units: K/mm3; Status: F Test: EOS #; Value: 0.0; Range: 0.0-0.50; Units: K/mm3; Status: F Test: BASO #; Value: 0.0; Range: 0.0-0.2; Units: K/mm3; Status: F Test: LARGE UNSTAINED CELL #; Value: 0.2; Range: 0.0-0.4; Units: K/mm3; Status: F Lab Order: MED Profile; SPEC'M 03/23/16 14:34 Test: GLUCOSE, FASTING; Value: 91; Range: 83-110; Units: MG/DL; Status: F Test: BLOOD UREA NITROGEN; Value: 23; Range: 7-18; Abnormal: Above high normal; Units: MG/DL; Status: F Test: CREATININE FOR GFR; Value: 1.04; Range: 0.70-1.30; Units: MG/DL; Status: F Test: GLOMERULAR FILTRATION RATE; Value: > 60.0; Range: >35; Status: F Test: SODIUM LEVEL; Value: 139; Range: 136-145; Units: MEQ/L; Status: F Test: POTASSIUM SERUM; Value: 3.4; Range: 3.5-5.1; Abnormal: Below low normal; Units: MEQ/L; Status: F Test: CHLORIDE LEVEL; Value: 105; Range: 98-107; Units: MEQ/L; Status: F Test: CARBON DIOXIDE LEVEL; Value: 25; Range: 21-32; Units: MEQ/L; Status: F Test: ANION GAP; Value: 9; Range: 8-16; Units: MEQ/L; Status: F Test: CALCIUM LEVEL; Value: 8.4; Range: 8.8-10.2; Abnormal: Below low normal; Units: MG/DL; Status: F Test Note: ; Units are mL/min/1.73 m2 Chronic Kidney Disease Staging per NKF: Stage I & II GFR >=60 Normal to Mildly Decreased Stage III GFR 30-59 Moderately Decreased Stage IV GFR 15-29 Severely Decreased Stage V GFR <15 Very Little GFR Left ESRD GFR <15 on EXPLOSIVE ORDNANCE SPECIALIST Lab Order: CIP; SPEC'03/23/16 14:34 Test: CPK CREATINE PHOSPHOKINASE; Value: 344; Range: 39-308; Abnormal: Above high normal; Units: U/L; Status: F Test: CK-MB VALUE MASS; Value: 2.7; Range: 0.0-3.6; Units: NG/ML; Status: F Test: MB/CK RELATIVE INDEX; Value: 0.78; Range: < OR =4; Status: F Test Note: ; DIAGNOSIS CRITERIA MMB ng/ml Relative Index (RI) NON-AMI < or = 5 N/A ARANGO ZONE > 5 < or = 4 AMI > 5 > 4 Lab Order: Troponin; SPEC'M 03/23/16 14:34 Test: TROPONIN I; Value: 0.02; Range: < 0.10; Units: NG/ML; Status: F Test Note: ; Troponin I Reference Interval for 99designs LOCI: 99th Percentile= 0.00-0.045 ng/ml Risk Stratification: <= 0.10 ng/ml Decreased Risk for Adverse Clinical Events. 0.10-1.50 ng/ml Increased Risk for Adverse Clinical Events. Evaluation of additional criterion and/or repeat testing in 2-6 hours is suggested to rule out myocardial damage. >= 1.50 ng/ml Indicative of Myocardial Injury. Lab Order: BNP; SPEC'M 03/23/16 14:00 Test: BRAIN NATRIURETIC PEPTIDE; Value: 70.8; Range: <100; Units: PG/ML; Status: F Lab Order: URINALYSIS; SPEC'M 03/23/16 20:09 Test: APPEARANCE, URINE; Value: TURBID; Range: CLEAR; Abnormal: Above high normal; Status: F Test: COLOR, URINE; Value: NINO; Range: YELLOW; Status: F Test: PH,URINE; Value: 7.0; Range: 5.0-9.0; Units: UNITS; Status: F Test: SPECIFIC GRAVITY URINE AUTO; Value: 1.019; Range: 1.002-1.035; Status: F Test: PROTEIN, URINE AUTO; Value: 2+; Range: NEGATIVE; Abnormal: Above high normal; Units: mg/dL; Status: F Test: GLUCOSE, URINE (UA) AUTO; Value: NEGATIVE; Range: NEGATIVE; Units: mg/dL; Status: F Test: KETONE, URINE AUTO; Value: TRACE; Range: NEGATIVE; Abnormal: Above high normal; Units: mg/dL; Status: F Test: UROBILINOGEN, URINE AUTO; Value: 0.2; Range: 0.0-2.0; Units: mg/dL; Status: F Test: BILIRUBIN, URINE AUTO; Value: NEGATIVE; Range: NEGATIVE; Status: F Test: NITRITE, URINE AUTO; Value: NEGATIVE; Range: NEGATIVE; Status: F Test: LEUKOCYTE ESTERASE, URINE AUTO; Value: 3+; Range: NEGATIVE; Abnormal: Above high normal; Status: F Test: BLOOD, URINE BLOOD; Value: 1+; Range: NEGATIVE; Abnormal: Above high normal; Status: F Test: WBC, URINE AUTO; Value: TNTC; Range: 0-3; Abnormal: Above high normal; Units: /HPF; Status: F Test: RBC, URINE AUTO; Value: 38; Range: 0-3; Abnormal: Above high normal; Units: /HPF; Status: F Test: BACTERIA, URINE AUTO; Value: 1+; Range: NEGATIVE; Abnormal: Above high normal; Status: F Test: SQUAMOUS EPITHELIAL CELL UR AU; Value: 6; Range: 0-6; Units: /HPF; Status: F Test: MUCUS, URINE; Value: SMALL; Range: NEGATIVE; Status: F Test: HYALINE CAST, URINE AUTO; Value: 0; Range: 0-1; Units: /LPF; Status: F Test: CALCIUM OXALATE CRYSTALS; Value: LARGE; Range: NONE; Status: F Lab Order: INFLUENZA A&B RAPID ANTIGEN; SPEC'M 03/23/16 20:10 Test: INFLUENZA A RAPID SCR by ICA; Value: INFLUENZA A RESULTS NEGATIVE; Status: F Test: INFLUENZA A RAPID SCR by ICA; Value: Comments:; Status: F Test: INFLUENZA B RAPID SCR by ICA; Value: INFLUENZA B RESULTS NEGATIVE; Status: F Test Note: ; The Influenza test is a direct rapid immunoassay for the qualitative detection of Influenza viral antigen. Cell culture (Viral Culture) testing should be considered to confirm NEGATIVE results and to assist in detecting other viruses that can provide similar clinical symptoms. Please contact the lab within 24 [phone]) if confirmatory testing is desired. 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: ct; : 1930 Requested By: Issa Shanks; Order Number: [id number] Reading MD: Issa Aguilar; Measurements; Intervals [place]; Rate: 90 P:; DC: 0 QRS: -10; QRSD: 84 T: 36; QT: 371; QTc: 455; Interpretive Statements; ATRIAL FIBRILLATION; LOW QRS VOLTAGE IN EXTREMITY LEADS; PRWP; ABNORMAL RHYTHM ECG; ; Electronically Signed On 03-23-2016 23:02:24 EST by Issa Aguilar; Radiology Order: Chest, 1 View Test: Chest, 1 View REASON FOR EXAMINATION: Cough; Portable chest x-ray: Single view.; ; History: Cough.; ; Comparison study: May 12, 2015.; ; Findings: There are old granulomatous calcifications scattered bilaterally in; the lung mchugh. 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 EKG electrodes; are seen. There is no evidence of pneumothorax or infiltrate. Pulmonary; vasculature is not increased.; ; Impression:; ; Old granulomatous changes. No acute disease.; ; ; Signed by; Juaquin Zazueta MD 03/23/2016 05:34 P; Outcome: 17:00 Decision to Hospitalize by Provider. pc 21:52 No special radiology studies were completed. ld5 23:12 Discharge Assessment: Patient awake, alert and oriented x 3. No cognitive and/or ld5 functional deficits noted. Patient verbalized understanding of disposition instructions. patient administered narcotics - no. The following High Risk Discharge criteria are identified: None. Admitted to PCU accompanied by nurse, accompanied by tech, via stretcher, on monitor, with chart. Condition: stable. Property :Personal belongings accompany Pt. 23:31 Patient left the ED. ld5 Signatures: Dispatcher [employer] EDMS Issa Aguilar MD MD pc Erika Steele, RN RN kpmana Greene, Diana, Reg Reg gb Stuart Reinoso, Reg Reg lg Hal, Chip, Trout Farmer Unit ml3 Vance Winter, MANAGER INTEGRATED MANAGER INTEGRATED kb5 Foreign Delatorre jc3 Anna Garcia, MANAGER INTEGRATED MANAGER INTEGRATED ar3 Narda Bailon,CHITO RN ld5 Yuliana Bangura, MANAGER INTEGRATED MANAGER INTEGRATED ct3 Balaji Monte,RN RN mb9 Corrections: (The following items were deleted from the chart) 12:28 12:19 Pulse 114bpm; Resp 26bpm; Pulse Ox 96% RA; Temp 98F Temporal; 81.65 kg; Height 6 mb9 ft. 2 in.; BMI: 23.1; Pain 5/10; mb9 12:31 12:14 Presenting complaint: Patient states: "I've been coughing for a while and the mb9 only thing I've had to eat is crackers and soda water". pt reports diarrhea. pt reports he was to see his phcp on Friday but felt he needed to be seen now for the symptoms. mb9 13:39 13:32 The history from nurses notes was reviewed and I agree with what is documented. pcpc Chart Complete MTDD
[2016-03-26 16:00] VITALS: BP 128/68
--- NOTE | 2016-03-26 17:00 | IPNPDOC ---
Assessment/Plan Date Seen The patient was seen on 03/26/16. Problems Problems: (1) Ileus Status: Acute Problem Text: NG tube was attempted but nursing staff were unable to place it Dr Morales of surgery on board We will keep the patient nothing by mouth, and on gentle IV fluid hydration Patient's abdomen less distended according to nursing staff today We will continue to monitor his progress. (2) Afib Status: Chronic Response to Treatment: Stable Problem Text: Continue on Lovenox 80 mg SC twice a day His Pradaxa has been held in case of surgical intervention The patient's heart rate is much better controlled today after receiving IV digoxin yesterday by cardiology This likely can be attributed to his inability to absorb any of the by mouth medication he had been receiving due to his underlying ileus. We will continue to monitor the patient on telemetry. (3) Dehydration Status: Acute Response to Treatment: Improving Problem Text: The patient is nothing by mouth, and at this time we will continue IV fluids (4) Hypokalemia Status: Resolved Problem Text: * continue to replace and recheck (5) Hypomagnesemia Status: Resolved (6) HTN (hypertension) Status: Chronic Response to Treatment: Stable (7) Gout Status: Chronic Response to Treatment: Stable (8) Parkinson disease Status: Chronic Plan / VTE VTE Prophylaxis Ordered?: Yes Subjective Review of Systems CC/HPI The patient is a 85-year-old male admitted with a reason for visit of Weakness. General: Denies: Chills, Night Sweats Constitutional: Denies: Chills, Fever Pulmonary: Denies: Cough, Dyspnea Cardiovascular: Denies: Chest Pain, Palpitations Gastrointestinal: Reports: Nausea, Vomiting, Denies: Abdominal Pain, Diarrhea Hematologic: Denies: Bleeding Excessively, Bruising Objective Physical Examination General Exam: Positive: Alert, No Acute Distress ENT Exam: Positive: Atraumatic, Mucous membr. moist/pink, Pharynx Normal Chest Exam: Positive: Clear to auscultation, Normal air movement Heart Exam: Positive: Normal S1, Normal S2, Tachycardic Telemetry: Positive: Atrial fibrillation Abdomen Exam: Positive: Normal bowel sounds, Soft, Negative: Hepatospenomegaly, Tenderness Extremity Exam: Positive: Normal pulses, Negative: Clubbing, Cyanosis, Edema Vital Signs/I&O Vital Signs Date Time Temp Pulse Resp B/P Pulse Ox O2 Delivery O2 Flow Rate FiO2 03/26/16 16:02 28 03/26/16 16:00 97.2 133 128/68 94 Room Air 03/24/16 08:00 2.0 I&O- Last 24 Hours up to 6 AM 03/26/16 06:00 Intake Total 2270 ml Output Total 1360 ml Balance 910 ml Laboratory Data Labs 24H Laboratory Tests 2 03/26/16 05:39: Anion Gap 13, White Blood Count 10.4H, Red Blood Count 4.13L, Hemoglobin 12.8L, Hematocrit 39.2L, Mean Corpuscular Volume 94.8, Mean Corpuscular Hemoglobin 31.0 , Mean Corpuscular Hemoglobin Concent 32.8, Red Cell Distribution Width 14.2, Platelet Count 364, Neutrophils (%) (Auto) 88.1H, Lymphocytes (%) (Auto) 4.6L, Monocytes (%) (Auto) 4.7, Eosinophils (%) (Auto) 0.5, Basophils (%) (Auto) 0.2, Neutrophils # (Auto) 9.2H, Lymphocytes # (Auto) 0.5L, Monocytes # (Auto) 0.5, Eosinophils # (Auto) 0.0, Basophils # (Auto) 0.0, Blood Urea Nitrogen 22H, Creatinine 1.01, Sodium Level 143, Potassium Level 3.6, Chloride Level 112H, Carbon Dioxide Level 18L, Calcium Level 8.5L, Glomerular Filtration Rate > 60.0 , Large Unclassified Cells # 0.2, Large Unclassified Cells % 1.9, Magnesium Level 1.9 CBC/BMP Laboratory Tests 03/26/16 05:39 Calcium Level 8.5 L, Red Blood Count 4.13 L, Mean Corpuscular Volume 94.8, Mean Corpuscular Hemoglobin 31.0, Mean Corpuscular Hemoglobin Concent 32.8, Red Cell Distribution Width 14.2, Neutrophils (%) (Auto) 88.1 H, Lymphocytes (%) (Auto) 4.6 L, Monocytes (%) (Auto) 4.7, Eosinophils (%) (Auto) 0.5, Basophils (%) (Auto ) 0.2, Neutrophils # (Auto) 9.2 H, Lymphocytes # (Auto) 0.5 L, Monocytes # (Auto ) 0.5, Eosinophils # (Auto) 0.0, Basophils # (Auto) 0.0 Microbiology Microbiology 03/23/16 Blood Culture - Preliminary, Resulted No Growth after 72 hours. All specime... 03/23/16 Blood Culture - Preliminary, Resulted No Growth after 72 hours. All specime... 03/23/16 Influenza Virus Type A Antigen - Final, Complete 03/23/16 Influenza Virus Type B Antigen - Final, Complete 03/25/16 Urine Culture - Final, Complete ECTOR ESPARZA MD Mar 26, 2016 17:00
[2016-03-26 20:00] VITALS: BP 140/89
[2016-03-26] MEDS ORDERED: MORPHINE 2 MG/ML 1ML SYRINGE IV ONE (23:00)
[2016-03-26 23:59] VITALS: BP 161/73
[2016-03-27] VITALS (12 sets, daily range): BP systolic 118–169; BP diastolic 71–100
[2016-03-27] MEDS ORDERED: DIGOXIN INJ 0.5 MG/2 ML AMP (J1160) IV ONE
[2016-03-27] MEDS ORDERED: METOPROLOL 5 MG/5 ML VIAL IV ONE
[2016-03-27] MEDS: IPRATROPIUM 0.5MG/ALBUTEROL 2.5MG INH SOL UD 3ML (DUONEB)(J7620) NEB SCH ×3 (02:00→12:55)
[2016-03-27 02:01] LABS: ABG BASE EXCESS -5.2 (-2.0-2.0); ABG HCO3 19.1 MEQ/L (22.0-26.0); ABG PARTIAL PRESSURE CO2 33.6 mmHg (35.0-45.0); ABG PARTIAL PRESSURE O2 79.8 mmHg (75.0-100.0); ABG STANDARD HCO3 20.2 MEQ/L (22.0-26.0); ABG TOTAL CO2 20.2 MEQ/L (23.0-31.0); ABG pH (ARTERIAL) 7.373 UNITS (7.350-7.450)
--- NOTE | 2016-03-27 02:10 | REPUSA ---
CLINICAL HISTORY: None. COMMENTS: AP view of chest reveals bilateral basilar atelectatic pulmonary changes. The cardiac silhouette is enlarged. The mediastinum and pulmonary vessels appear normal. Aorta is tor tuous. Degenerative changes are noted in the thoracic spine. IMPRESSION: Mild atelectatic changes in the bases. Enlarged cardiac silhouette. Tortuous aorta. Thank you for your kind referral of this patient.
[2016-03-27] MEDS: NS 1,000 ML IV SCH ×2 (02:31→13:26)
[2016-03-27 03:01] LABS: ALBUMIN 2.7 GM/DL (3.2-5.2); ANION GAP 9 MEQ/L (8-16); BLOOD UREA NITROGEN 28 MG/DL (7-18); CALCIUM LEVEL 8.5 MG/DL (8.8-10.2); CARBON DIOXIDE LEVEL 22 MEQ/L (21-32); CHLORIDE LEVEL 115 MEQ/L (98-107); CREATININE FOR GFR 1.07 MG/DL (0.70-1.30); GLOMERULAR FILTRATION RATE > 60.0 (>35); GLUCOSE, FASTING 111 MG/DL (83-110); PHOSPHORUS LEVEL 2.5 MG/DL (2.5-4.9); POTASSIUM SERUM 4.1 MEQ/L (3.5-5.1); SODIUM LEVEL 146 MEQ/L (136-145)
[2016-03-27] MEDS: METOCLOPRAMIDE INJ 10MG/2ML VIAL (J2765) IV SCH ×3 (03:01→13:25)
[2016-03-27] MEDS: MORPHINE 2 MG/ML 1ML SYRINGE IV PRN ×5 (05:44→16:13)
[2016-03-27 06:06] LABS: BASO % 0.1 % (0.0-1.0); EOS % 0.4 % (0.0-3.0); LARGE UNSTAINED CELL # 0.2 K/mm3 (0.0-0.4); LARGE UNSTAINED CELL % 1.8 % (0.0-4.0); LYMPH # 0.5 K/mm3 (1.5-4.5); LYMPH % 3.9 % (24.0-44.0); MEAN CORPUSCULAR HEMOGLOBIN 30.4 pg (27.0-33.0); MEAN CORPUSCULAR HGB CONC 31.9 g/dl (32.0-36.5); MEAN CORPUSCULAR VOLUME 95.5 fl (80.0-96.0); MONO # 0.5 K/mm3 (0.0-0.8); MONO % 4.5 % (0.0-5.0); NEUTROPHILS # 10.5 K/mm3 (1.8-7.7); NEUTROPHILS % 89.2 % (36.0-66.0); PLATELET COUNT, AUTOMATED 379 k/mm3 (150-450); RED CELL DISTRIBUTION WIDTH 14.1 % (11.5-14.5); WHITE BLOOD COUNT 11.8 K/mm3 (4.0-10.0)
[2016-03-27 06:33] LABS: ANION GAP 9 MEQ/L (8-16); BLOOD UREA NITROGEN 28 MG/DL (7-18); CALCIUM LEVEL 8.6 MG/DL (8.8-10.2); CARBON DIOXIDE LEVEL 22 MEQ/L (21-32); CHLORIDE LEVEL 113 MEQ/L (98-107); CREATININE FOR GFR 1.04 MG/DL (0.70-1.30); GLOMERULAR FILTRATION RATE > 60.0 (>35); GLUCOSE, FASTING 109 MG/DL (83-110); MAGNESIUM LEVEL 1.9 MG/DL (1.8-2.4); SODIUM LEVEL 144 MEQ/L (136-145)
[2016-03-27] MEDS ORDERED: PANTOPRAZOLE 40MG INJ (PROTONIX) (C9113) IV SCH (09:00)
[2016-03-27] MEDS: ENOXAPARIN 80 MG/0.8 ML SYRINGE (J1650) SC SCH (10:09)
[2016-03-27] MEDS: SINEMET 25-100 MG TAB PO SCH ×2 (10:10→16:00)
--- NOTE | 2016-03-27 10:26 | IPNPDOC ---
[facility] Cardiology Progress Note Date of Service/Time The patient was seen on 03/27/16 at 10:25. Cardiology Progress Note Mr. Holley is an 85 y/o male who initially presented with cough, diarrhea and weakness of 2 weeks duration, he was admitted for dehydration most likely secondary to diarrhea. Mr Holley has a history of chronic atrial fibrillation, and cardiology was thus consulted for mgmt. of tachycardia. OBJECTIVE: PHYSICAL EXAMINATION: VITAL SIGNS: Please see below. GENERAL APPEARANCE: pt. seems more lethargic today, is arousable to verbal stimuli but quickly closes his eyes again, does not seem interested nor will answer questions. HEENT: NCAT, nares patent b/l, tongue midline, moist mucus membranes, LUNGS: wheezing throughout lung mchugh, better than one day prior, some rhonchi heard in RUL, otherwise CTA. HEART: tachycardic, rate 124 on bedside exam, normal s1 and s2, no murmurs or gallops appreciated ABDOMEN: appears non-distended today on exam, diminished bowel sounds diffusely , soft SKIN: intact, dry NEUROLOGICAL: no focal deficits appreciated PSYCHIATRIC: pt is very lethargic, is arousable to verbal stimuli but does not seem interested nor will answer questions at bedside exam, closes eyes quickly again LABORATORY WORK: Please see below. ASSESSMENT AND PLAN: The pt. was tachycardic one day ago and was given .125 mg Digoxin IV which he seemed to respond to favorably. The pt. is now between 103-125 BPM, would not suggest any change in medication at this point. There is a concern at this point that the pt. may have sustained a silent aspiration, unfortunately the pt. did not tolerate repeated attempts of NG tube placement over the past two days by nursing staff. Spoke to Dr. Morales this AM, and he will attempt today to place NG tube, it is with the hopes that if he can be decompressed that his tachycardia may resolve and he could tolerate PO medications. For now the pt is NPO on fluid hydration. We will continue to hold the Pradaxa in case he should need surgicial intervention in the near future, is receiving lovenox 80 mg BID for his atrial fibrillation. Would not suggest any additional change in medications at this time, patients HR is slightly elevated but this is acceptable in light of his other aforementioned medical conditions. Will continue to follow and make changes as necessary. Vital Signs/I&O VS/I&O Vital Signs Date Time Temp Pulse Resp B/P Pulse Ox O2 Delivery O2 Flow Rate FiO2 03/27/16 08:18 20 Nasal Cannula 2.0 03/27/16 08:00 96.4 129 118/78 97 I&O- Last 24 Hours up to 6 AM 03/27/16 06:00 Intake Total 525 ml Output Total 375 ml Balance 150 ml Laboratory Data 24H LABS Laboratory Tests 2 03/27/16 01:56: Arterial Blood pH 7.373, Arterial Blood Partial Pressure CO2 33.6L, Arterial Blood Partial Pressure O2 79.8, Arterial Blood Total CO2 20.2L, Arterial Blood HCO3 19.1L, Arterial Blood Base Excess -5.2L, Arterial Blood Oxygen Saturation 95.9, Blood Gas Bicarbonate Standard 20.2L 03/27/16 02:28: Albumin 2.7L, Blood Urea Nitrogen 28H, Creatinine 1.07, Sodium Level 146H, Potassium Level 4.1, Chloride Level 115H, Carbon Dioxide Level 22, Anion Gap 9, B-Type Natriuretic Peptide 151H, Calcium Level 8.5L, Glomerular Filtration Rate > 60.0, Lactic Acid Level 1.5, Phosphorus Level 2.5 03/27/16 05:50: Blood Urea Nitrogen 28H, Creatinine 1.04, Sodium Level 144, Potassium Level 4.0 , Chloride Level 113H, Carbon Dioxide Level 22, Anion Gap 9, Calcium Level 8.6L , Glomerular Filtration Rate > 60.0, White Blood Count 11.8H, Red Blood Count 4.14L, Hemoglobin 12.6L, Hematocrit 39.5L, Mean Corpuscular Volume 95.5, Mean Corpuscular Hemoglobin 30.4, Mean Corpuscular Hemoglobin Concent 31.9L, Red Cell Distribution Width 14.1, Platelet Count 379, Neutrophils (%) (Auto) 89.2H, Lymphocytes (%) (Auto) 3.9L, Monocytes (%) (Auto) 4.5, Eosinophils (%) (Auto) 0.4, Basophils (%) (Auto) 0.1, Neutrophils # (Auto) 10.5H, Lymphocytes # (Auto) 0.5L, Monocytes # (Auto) 0.5, Eosinophils # (Auto) 0.0, Basophils # (Auto) 0.0, Large Unclassified Cells # 0.2, Large Unclassified Cells % 1.8, Magnesium Level 1.9 CBC/BMP Laboratory Tests 03/27/16 02:28 Anion Gap 9 03/27/16 05:50 Calcium Level 8.6 L, Red Blood Count 4.14 L, Mean Corpuscular Volume 95.5, Mean Corpuscular Hemoglobin 30.4, Mean Corpuscular Hemoglobin Concent 31.9 L, Red Cell Distribution Width 14.1, Neutrophils (%) (Auto) 89.2 H, Lymphocytes (%) ( Auto) 3.9 L, Monocytes (%) (Auto) 4.5, Eosinophils (%) (Auto) 0.4, Basophils (% ) (Auto) 0.1, Neutrophils # (Auto) 10.5 H, Lymphocytes # (Auto) 0.5 L, Monocytes # (Auto) 0.5, Eosinophils # (Auto) 0.0, Basophils # (Auto) 0.0 Microbiology Microbiology 03/23/16 Blood Culture - Preliminary, Resulted No Growth after 72 hours. All specime... 03/23/16 Blood Culture - Preliminary, Resulted No Growth after 72 hours. All specime... 03/23/16 Influenza Virus Type A Antigen - Final, Complete 03/23/16 Influenza Virus Type B Antigen - Final, Complete 03/25/16 Urine Culture - Final, Complete GME ATTESTATION GME ATTESTATION My preceptor for this patient encounter was physically present in the building during the encounter and was fully available. As needed, all aspects of the patient interview, examination, medical decision making process, and medical care plan development were reviewed and approved by the preceptor. Preceptor is aware and concurs with the plan as stated in the body of this note and will attest to such by his/her cosignature. GUANAKITO JC DO Mar 27, 2016 10:26
--- NOTE | 2016-03-27 10:31 | REP ---
CT abdomen and pelvis without contrast, 03/27/2016: Indication: Abdominal pain, distension. Comparison: CT of the abdomen and CT pelvis 03/25/2016, and CT abdomen and pelvis 03/27/2015. Findings: As previously noted on 03/25/2016, there is generalized distension of the stomach, small bowel, and to a lesser degree colon, filled with fluid and to a lesser extent air distally. Findings do suggest small area of fixed narrowing within the proximal sigmoid on image 117 series 201 and not significantly changed. There is no free intraperitoneal air. There is a right lower lobe infiltrate consistent with consolidation, representing interval change from prior study. There is minimal atelectasis in the left base. Calcified granulomata are identified bilaterally in the lung bases. Visualized portions liver, spleen, pancreas are unremarkable. There has been prior cholecystectomy. Abdominal aorta is of normal course and caliber. Kidneys are without hydronephrosis. The bladder is fluid-filled. Some scarring is suggested anteriorly. Impression: 1. Persistent small bowel dilatation and to a lesser extent colonic dilatation/obstruction. Findings are again concerning for an area of fixed narrowing within the proximal to mid sigmoid best seen on image 118 series 201. Recommend colonoscopy or CT with rectal contrast. 2. No free intraperitoneal air. 3. Right lower lobe infiltrate consistent with pneumonia. Case discussed with Dr. Galindo on 03/27/16 at 1015 am. Signed by Josephine Merritt MD 03/28/2016 07:28 P
--- NOTE | 2016-03-27 10:45 | PHACANCOPD ---
PHARMACY VANCOMYCIN DOSING Pt Demographics Demographics Patient Age:85 , Weight:81.600 , Gender: male Adjusted Body Weight Date: 03/27/16, Adjusted Body Weight: Kg Events Past 24 Hours Events Past 24 Hours: YES: Elevation in WBC, NO: Change in CrCl, Dialysis, Diuretic Therapy, Fever, Other, Pending Diagnostics, Pending Procedures Vancomycin Vancomycin indication: Empiric Coverage, + Sepsis critera Vancomycin Target Ranges: 15-20 mcg/ml Vancomycin Load Y/N: Yes Load Dose Date Time Vancomycin Load Dose: 1500mg Date: 03/27/15 Time: 1200 Vancomycin Dose Date: 03/27/16. Current Vancomycin Dose: [1gm IV q12h@12] Intermittent Dosing?: No Labs Labs Item Value Date Time White Blood Count 10.4 K/mm3 H 03/26/16 0539 White Blood Count 7.6 K/mm3 03/25/16 0518 White Blood Count 11.8 K/mm3 H 03/27/16 0550 Creatinine 1.04 MG/DL 03/27/16 0550 Vital Signs Label Value Date Time Patient Temperature 98.4 degrees F 03/27/16 0544 Patient Temperature 96.4 degrees F 03/27/16 0800 Temperature Source Tympanic 03/27/16 0800 Micro Microbiology 03/23/16 Blood Culture - Preliminary, Resulted No Growth after 72 hours. All specime... 03/23/16 Blood Culture - Preliminary, Resulted No Growth after 72 hours. All specime... 03/23/16 Influenza Virus Type A Antigen - Final, Complete 03/23/16 Influenza Virus Type B Antigen - Final, Complete 03/25/16 Urine Culture - Final, Complete Creatinine Clearance Date:03/27/16. Creatinine Clearance: . Assessment and Plan Maintaining Current Dose?: Yes Reason for dose change: No Dose Change Pharmacist Note Pharmacist Note Date: 03/27/16. Pharmacist note: Patient was started on empiric coverage for positive sepsis criteria. He has no history of MRSA at our facility but has had MSSA. He has not been on Vancomycin here since 2007. We loaded him with Vancomycin 1500mg, then continued him on 1gm IV q12h. We will continue to monitor him and make adjustments as necessary. TANIYA PEREZ PHARMACY Mar 27, 2016 10:45
[2016-03-27] MEDS ORDERED: MEROPENEM INJ 1 GM in D5W MINI-BAG PLUS 100 ML IV SCH (11:00)
[2016-03-27 11:45] LABS: DIGOXIN LEVEL 1.7 NG/ML (0.5-2.0)
[2016-03-27] MEDS ORDERED: VANCOMYCIN HCL 1,000 MG, VIAL MATE ADAPTER 1 EACH in D5W 250 ML IV SCH ×6 (12:00)
[2016-03-27] MEDS ORDERED: VANCOMYCIN HCL 500 MG in D5W MINI-BAG PLUS 100 ML IV ONE (13:00)
[2016-03-27] MEDS ORDERED: SCOPOLAMINE 1.5 MG TRANSDERMAL TD PRN (16:30)
--- NOTE | 2016-03-27 16:47 | IPNPDOC ---
Assessment/Plan Date Seen The patient was seen on 03/27/16. Problems Problems: (1) Ileus Status: Acute Problem Text: NG tube was attempted but nursing staff were unable to place it Dr Morales also attempted to place an NG tube and he was unable to I did have an extensive discussion with the patient's health care decision maker listed in the chart--(Niece, Christelle Harris, ) regarding the patient's current condition I did explain to her that the patient has become increasingly obtunded, hemodynamically unstable, with a markedly distended abdomen with an inability to pass an NG tube to alleviate the distention, and now with findings of right lower lobe pneumonia likely secondary to aspiration which has led to the patient to be in increased respiratory distress. The patient's decision maker stated that Mr. Holley would not want any of the current aggressive measures to be taken. She has decided to make the patient comfort measures only. (2) Afib Status: Chronic Response to Treatment: Stable Problem Text: Continue on Lovenox 80 mg SC twice a day His Pradaxa has been held in case of surgical intervention The patient's heart rate is much better controlled today after receiving IV digoxin yesterday by cardiology This likely can be attributed to his inability to absorb any of the by mouth medication he had been receiving due to his underlying ileus. We will continue to monitor the patient on telemetry. (3) Dehydration Status: Acute Response to Treatment: Improving Problem Text: The patient is nothing by mouth, and at this time we will continue IV fluids (4) Hypokalemia Status: Resolved Problem Text: * continue to replace and recheck (5) Hypomagnesemia Status: Resolved (6) HTN (hypertension) Status: Chronic Response to Treatment: Stable (7) Gout Status: Chronic Response to Treatment: Stable (8) Parkinson disease Status: Chronic Plan / VTE VTE Prophylaxis Ordered?: Yes Disposition As noted above, the patient has been made comfort measures only, hospice consulted. Subjective Review of Systems CC/HPI The patient is a 85-year-old male admitted with a reason for visit of Weakness. General: Reports: ROS Unobtainable Objective Physical Examination General Exam: Positive: Moderate Distress, Negative: Alert, Cooperative ENT Exam: Positive: Atraumatic, Mucous membr. moist/pink, Pharynx Normal Chest Exam: Positive: Diminished, Rhonchi Heart Exam: Positive: Irregular Rhythm, Tachycardic Telemetry: Positive: Atrial fibrillation Abdomen Exam: Positive: BS Hypoactive, Normal bowel sounds, Other (Distended), Negative: Hepatospenomegaly, Tenderness Extremity Exam: Positive: Normal pulses, Negative: Clubbing, Cyanosis, Edema Vital Signs/I&O Vital Signs Date Time Temp Pulse Resp B/P Pulse Ox O2 Delivery O2 Flow Rate FiO2 03/27/16 16:13 24 Nasal Cannula 2.0 03/27/16 12:00 97.5 130 147/100 99 I&O- Last 24 Hours up to 6 AM 03/27/16 06:00 Intake Total 525 ml Output Total 375 ml Balance 150 ml Laboratory Data Labs 24H Laboratory Tests 2 03/27/16 01:56: Arterial Blood pH 7.373, Arterial Blood Partial Pressure CO2 33.6L, Arterial Blood Partial Pressure O2 79.8, Arterial Blood Total CO2 20.2L, Arterial Blood HCO3 19.1L, Arterial Blood Base Excess -5.2L, Arterial Blood Oxygen Saturation 95.9, Blood Gas Bicarbonate Standard 20.2L 03/27/16 02:28: Albumin 2.7L, Blood Urea Nitrogen 28H, Creatinine 1.07, Sodium Level 146H, Potassium Level 4.1, Chloride Level 115H, Carbon Dioxide Level 22, Anion Gap 9, B-Type Natriuretic Peptide 151H, Calcium Level 8.5L, Glomerular Filtration Rate > 60.0, Lactic Acid Level 1.5, Phosphorus Level 2.5 03/27/16 05:50: Blood Urea Nitrogen 28H, Creatinine 1.04, Sodium Level 144, Potassium Level 4.0 , Chloride Level 113H, Carbon Dioxide Level 22, Anion Gap 9, Calcium Level 8.6L , Glomerular Filtration Rate > 60.0, White Blood Count 11.8H, Red Blood Count 4.14L, Hemoglobin 12.6L, Hematocrit 39.5L, Mean Corpuscular Volume 95.5, Mean Corpuscular Hemoglobin 30.4, Mean Corpuscular Hemoglobin Concent 31.9L, Red Cell Distribution Width 14.1, Platelet Count 379, Neutrophils (%) (Auto) 89.2H, Lymphocytes (%) (Auto) 3.9L, Monocytes (%) (Auto) 4.5, Eosinophils (%) (Auto) 0.4, Basophils (%) (Auto) 0.1, Neutrophils # (Auto) 10.5H, Lymphocytes # (Auto) 0.5L, Monocytes # (Auto) 0.5, Eosinophils # (Auto) 0.0, Basophils # (Auto) 0.0, Digoxin Level 1.7, Large Unclassified Cells # 0.2, Large Unclassified Cells % 1.8, Magnesium Level 1.9 CBC/BMP Laboratory Tests 03/27/16 02:28 Anion Gap 9 03/27/16 05:50 Calcium Level 8.6 L, Red Blood Count 4.14 L, Mean Corpuscular Volume 95.5, Mean Corpuscular Hemoglobin 30.4, Mean Corpuscular Hemoglobin Concent 31.9 L, Red Cell Distribution Width 14.1, Neutrophils (%) (Auto) 89.2 H, Lymphocytes (%) ( Auto) 3.9 L, Monocytes (%) (Auto) 4.5, Eosinophils (%) (Auto) 0.4, Basophils (% ) (Auto) 0.1, Neutrophils # (Auto) 10.5 H, Lymphocytes # (Auto) 0.5 L, Monocytes # (Auto) 0.5, Eosinophils # (Auto) 0.0, Basophils # (Auto) 0.0 Microbiology Microbiology 03/23/16 Blood Culture - Preliminary, Resulted No Growth after 72 hours. All specime... 03/23/16 Blood Culture - Preliminary, Resulted No Growth after 72 hours. All specime... 03/23/16 Influenza Virus Type A Antigen - Final, Complete 03/23/16 Influenza Virus Type B Antigen - Final, Complete 03/25/16 Urine Culture - Final, Complete ECTOR ESPARZA MD Mar 27, 2016 16:47
[2016-03-27] MEDS: MORPHINE 10MG/0.5ML ORAL CONCENTRATE SOLUTION U/D SL PRN (18:34)
[2016-03-27] MEDS: LORazepam 2 MG/ML VIAL (J2060) IV PRN (18:47)
[2016-03-28] MEDS: LORazepam 2 MG/ML VIAL (J2060) IV PRN ×4 (01:28→12:32)
[2016-03-28] MEDS: MORPHINE 10MG/0.5ML ORAL CONCENTRATE SOLUTION U/D SL PRN ×4 (04:59→12:32)
--- NOTE | 2016-03-28 10:52 | IPNPDOC ---
[facility] Cardiology Progress Note Date of Service/Time The patient was seen on 03/28/16 at 10:45. Cardiology Progress Note Mr. Holley is an 85 y/o male who initially presented with cough, diarrhea and weakness of 2 weeks duration, he was admitted for dehydration most likely secondary to diarrhea. Mr Holley has a history of chronic atrial fibrillation, and cardiology was thus consulted for mgmt. of tachycardia. OBJECTIVE: PHYSICAL EXAMINATION: VITAL SIGNS: Please see below. GENERAL APPEARANCE: laying in bed, asleep, seems comfortable, arouses to verbal and painful stimuli HEENT: NCAT, PERRLA, nares patent b/l, moist mucus membranes LUNGS: wheezing in RLL, otherwise CTA, no rhonchi or rales appreciated HEART: normal s1 and s1, rate in, atrial fibrillation, no gallops, murmurs or rubs appreciated ABDOMEN: NABSx4, non-distended, non-tender, no organomegaly, no pain to palpitation SKIN: dry, intact EXTREMITIES: no edema or cyanosis noted NEUROLOGICAL: no focal deficits appreciated PSYCHIATRIC: lethargic but can arouse to verbal and painful stimuli LABORATORY WORK: Please see below. 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 Should there be any change in his status, we would be more than happy to re-visit the patient and suggest further care. Vital Signs/I&O VS/I&O Vital Signs Date Time Temp Pulse Resp B/P Pulse Ox O2 Delivery O2 Flow Rate FiO2 03/28/16 04:59 20 90 Nasal Cannula 2.0 03/27/16 16:00 97.5 149 150/78 I&O- Last 24 Hours up to 6 AM 03/28/16 06:00 Intake Total 0 ml Output Total 0 ml Balance 0 ml Laboratory Data Microbiology Microbiology 03/23/16 Blood Culture - Preliminary, Resulted No Growth after 72 hours. All specime... 03/23/16 Blood Culture - Preliminary, Resulted No Growth after 72 hours. All specime... 03/23/16 Influenza Virus Type A Antigen - Final, Complete 03/23/16 Influenza Virus Type B Antigen - Final, Complete 03/25/16 Urine Culture - Final, Complete GME ATTESTATION GME ATTESTATION My preceptor for this patient encounter was physically present in the building during the encounter and was fully available. As needed, all aspects of the patient interview, examination, medical decision making process, and medical care plan development were reviewed and approved by the preceptor. Preceptor is aware and concurs with the plan as stated in the body of this note and will attest to such by his/her cosignature. GUANAKITO JC DO Mar 28, 2016 10:52
--- NOTE | 2016-03-28 13:12 | IPNPDOC ---
Assessment/Plan Date Seen The patient was seen on 03/28/16. Problems Problems: (1) Ileus Status: Acute Problem Text: NG tube was attempted but nursing staff were unable to place it Dr Morales also attempted to place an NG tube and he was unable to I did have an extensive discussion with the patient's health care decision maker listed in the chart--(Niece, Christelle Harris, ) regarding the patient's current condition I did explain to her that the patient has become increasingly obtunded, hemodynamically unstable, with a markedly distended abdomen with an inability to pass an NG tube to alleviate the distention, and now with findings of right lower lobe pneumonia likely secondary to aspiration which has led to the patient to be in increased respiratory distress. The patient's decision maker stated that Mr. Holley would not want any of the current aggressive measures to be taken. She has decided to make the patient comfort measures only. (2) Afib Status: Chronic Response to Treatment: Stable Problem Text: Continue on Lovenox 80 mg SC twice a day His Pradaxa has been held in case of surgical intervention The patient's heart rate is much better controlled today after receiving IV digoxin yesterday by cardiology This likely can be attributed to his inability to absorb any of the by mouth medication he had been receiving due to his underlying ileus. 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 General: Reports: ROS Unobtainable Objective Physical Examination General Exam: Positive: No Acute Distress, Negative: Alert, Cooperative ENT Exam: Positive: Atraumatic, Mucous membr. moist/pink, Pharynx Normal Chest Exam: Positive: Diminished, Rhonchi Heart Exam: Positive: Irregular Rhythm, Tachycardic Abdomen Exam: Positive: BS Hypoactive, Normal bowel sounds, Other (Distended), Negative: Hepatospenomegaly, Tenderness Extremity Exam: Positive: Normal pulses, Negative: Clubbing, Cyanosis, Edema Vital Signs/I&O Vital Signs Date Time Temp Pulse Resp B/P Pulse Ox O2 Delivery O2 Flow Rate FiO2 03/28/16 04:59 20 90 Nasal Cannula 2.0 03/27/16 16:00 97.5 149 150/78 I&O- Last 24 Hours up to 6 AM 03/28/16 06:00 Intake Total 0 ml Output Total 0 ml Balance 0 ml Laboratory Data Microbiology Microbiology 03/23/16 Blood Culture - Preliminary, Resulted No Growth after 72 hours. All specime... 03/23/16 Blood Culture - Preliminary, Resulted No Growth after 72 hours. All specime... 03/23/16 Influenza Virus Type A Antigen - Final, Complete 03/23/16 Influenza Virus Type B Antigen - Final, Complete 03/25/16 Urine Culture - Final, Complete ECTOR ESPARZA MD Mar 28, 2016 13:12
--- NOTE | 2016-03-29 15:23 | DS.PDOC ---
Discharge Summary General Date of Admission Mar 25, 2016 at 15:15 Date of Discharge Mar 29, 2016 at 10:53 Discharge Summary PROCEDURES PERFORMED DURING STAY: None. COMPLICATIONS/CHIEF COMPLAINT: Weakness ADMISSION DIAGNOSES: 1. . Small bowel obstruction versus ileus 2. . Aspiration pneumonia 3. . Atrial fibrillation with rapid ventricular rate DISCHARGE DIAGNOSES: 1. . 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 The patient was admitted to the hospitalist service and started on IV fluid hydration and a GI panel was ordered. During the patient 's hospital admission here he developed a small bowel obstruction versus ileus. Patient was kept nothing by mouth and continued on IV fluid hydration and surgery was consulted for further assistance with management. In addition, the patient's atrial fibrillation was with rapid ventricular response. He did receive IV medications which initially better controlled his heart rate. However with the worsening abdominal distention and worsening respiratory status secondary to aspiration pneumonia the patient's clinical status continued to worsen. Our nursing staff here was unable to pass a NG tube down to alleviate the gastric distention. In addition, Dr. Morales of surgery was consulted and attempted to pass the NG tube, however he was unable to place one , and the patient would not allow for the tube to be passed as he was knocking the tube away and refusing. Given the patient's worsening clinical condition, and altered mental status his next of kin his niece, Christelle Harris was contacted regarding goals of care. She stated that the patient would not want aggressive treatment such as endotracheal intubation, cardiac resuscitation, and surgery at this point given his clinical condition and poor prognosis. The patient was made comfort measures only on 03/27/2016, and he subsequently was pronounced on 01/27/2017 at 10:53 AM. DISCHARGE MEDICATIONS: Please see below. ALLERGIES: Please see below. LABORATORY DATA: Please see below. IMAGING: CT abdomen without IV or oral contrast 03/25/2016 Indication: Abdominal pain Comparison: CT pelvis 04/02/2015 Findings: Multiple calcified granulomata are identified in the lung bases bilaterally. A small amount of bibasilar fibro atelectatic changes. Minimal bibasilar elect cyst is noted. There is trace intra-abdominal ascites, surrounding the liver this represents interval change when compared with CT pelvis 04/02/2015. Spleen is not enlarged. The pancreas is somewhat atrophic. Gallbladder is surgically absent. Adrenal glands are normal. The kidneys are without hydronephrosis. There is moderate gastric distension. Multiple air- fluid levels are seen throughout the small bowel and colon to the level of the proximal sigmoid. There is no bowel wall thickening. Moderate atherosclerotic changes are noted in the abdominal aorta. There is a 12 mm left periaortic infrarenal lymph node , which represents interval change. There is no free air. Degenerative disc changes are seen throughout the lumbosacral spine most pronounced at L 3-4 and L4-5 with significant central canal stenosis contributed to by facet osteoarthritis and facet hypertrophy bilaterally. There is grade 1 anterolisthesis and L4 bilaterally, degenerative in etiology. Impression: Scattered air-fluid levels seen in the stomach, small bowel and colon consistent with ileus or obstruction. It will be necessary to obtain CT of pelvis to exclude possible obstructing lesion. No free intraperitoneal air. Minimal ascites anterior to the dome of liver. VTE Prophylaxis ordered?: Yes DISCHARGE CONDITION: on 03/29/2016 DISPOSITION: 20 Vital Signs/I&Os Vital Signs Date Time Temp Pulse Resp B/P Pulse Ox O2 Delivery O2 Flow Rate FiO2 03/29/16 09:00 2.0 03/28/16 07:46 Nasal Cannula 03/28/16 04:59 20 90 03/27/16 16:00 97.5 149 150/78 I&O- Last 24 Hours up to 6 AM 03/29/16 06:00 Intake Total 0 ml Output Total 0 ml Balance 0 ml Microbiology Microbiology 03/23/16 Blood Culture - Final, Complete NO GROWTH AFTER 5 DAYS 03/23/16 Blood Culture - Final, Complete NO GROWTH AFTER 5 DAYS 03/23/16 Influenza Virus Type A Antigen - Final, Complete 03/23/16 Influenza Virus Type B Antigen - Final, Complete 03/25/16 Urine Culture - Final, Complete Medications Scheduled Allopurinol (Zyloprim) 300 Mg Tab 300 MG PO DAILY Carbidopa/Levodopa (Carbidopa/Levodopa 25-100 mg) 1 Tab Tab 1 TAB PO TID Dabigatran Etexilate (Pradaxa) 150 Mg Cap 150 MG PO BID PT STATES HE HAS NOT TAKEN IN ABOUT A WEEK Diltiazem HCl (Cartia Xt) 120 Mg Cap 120 MG PO DAILY Omeprazole (Omeprazole) 40 Mg Cap 40 MG PO DAILY Quinapril Hcl (Accupril) 20 Mg Tab 20 MG PO DAILY Simvastatin - High Dose (Zocor) 40 Mg Tab 40 MG PO DAILY Allergies Coded Allergies: No Known Allergies (Unverified , 01/27/14) ECTOR ESPARZA MD Mar 29, 2016 15:23
== END 2016-03-29 10:53 | disposition expired | DRG 388 ==
LOC: M ED 12:02 → M ED INP 18:31 → M PCU 23:44 → OBSVTOIN 03-25 15:15 → M MSPAV 03-27 21:24
PROVIDERS: ADMIT Hospitalist; ATTEND Internal Medicine
DX: K56.7 Ileus, unspecified (principal); J69.0 Pneumonitis due to inhalation of food and vomit; K22.70 Barrett's esophagus without dysplasia; I48.91 Unspecified atrial fibrillation; G20 Parkinson's disease; K21.9 Gastro-esophageal reflux disease without esophagitis; J44.9 Chronic obstructive pulmonary disease, unspecified; M10.9 Gout, unspecified; E78.5 Hyperlipidemia, unspecified; E87.6 Hypokalemia; E86.0 Dehydration; R00.0 Tachycardia, unspecified; E83.42 Hypomagnesemia; I10 Essential (primary) hypertension; Z51.5 Encounter for palliative care; Z90.49 Acquired absence of other specified parts of digestive tract; Z96.651 Presence of right artificial knee joint; Z96.652 Presence of left artificial knee joint; Z85.46 Personal history of malignant neoplasm of prostate; Z87.891 Personal history of nicotine dependence; Z79.899 Other long term (current) drug therapy; Z79.01 Long term (current) use of anticoagulants